=== PATIENT | female | born 1960 | race Two or more races ===

== ENCOUNTER 2016-10-20 14:07 | Emergency (ER) | payer BC, MEDICARE ==
[2016-10-20] MEDS ORDERED: ASPIRIN 81 MG TABLET, CHEWABLE PO ONE (14:19)
[2016-10-20] MEDS ORDERED: NORMAL SALINE 1000 ML 1,000 ML IV ONE (14:20)
[2016-10-20 15:17] LABS: ABSOLUTE BASOPHILS # (AUTO) 0.2 10^3/uL (0.0-0.2); ABSOLUTE EOSINOPHILS # (AUTO) 0.2 10^3/uL (0.0-0.6); ABSOLUTE LYMPHOCYTES (AUTO) 4.8 10^3/uL (0.5-4.7); ABSOLUTE MONOCYTES (AUTO) 1.5 10^3/uL (0.1-1.4); ABSOLUTE NEUT (AUTO) 12.7 10^3/uL (1.7-8.2); BASOPHILS % (AUTO) 0.9 % (0-2); EOSINOPHILS % (AUTO) 1.2 % (0-6); HEMATOCRIT 38.6 % (36.0-47.0); HEMOGLOBIN 12.4 g/dL (12.0-15.5); HGB HCT DIFFERENCE -1.4; LYMPHOCYTES % (AUTO) 24.8 % (13-45); MEAN CORPUSCULAR HEMOGLOBIN 24.7 pg (27.0-33.4); MEAN CORPUSCULAR HGB CONC 32.1 g/dL (32.0-36.0); MEAN CORPUSCULAR VOLUME 77 fl (80-97); MONOCYTES % (AUTO) 7.7 % (3-13); RED BLOOD COUNT 5.01 10^6/uL (3.72-5.28); RED CELL DISTRIBUTION WIDTH 18.4 % (11.5-14.0); SEGMENTED NEUTROPHILS % (AUTO) 65.4 % (42-78); WHITE BLOOD COUNT 19.5 10^3/uL (4.0-10.5)
[2016-10-20 15:49] LABS: PROTHROMBIN TIME 12.7 SEC (11.4-15.4)
[2016-10-20 15:51] LABS: ALANINE AMINOTRANSFERASE 33 U/L (9-52); ALBUMIN 4.2 g/dL (3.5-5.0); ALKALINE PHOSPHATASE 140 U/L (38-126); ANION GAP 16 (5-19); ASPARTATE AMINO TRANSFERASE 19 U/L (14-36); BILIRUBIN,TOTAL 0.4 mg/dL (0.2-1.3); BLOOD UREA NITROGEN 20 mg/dL (7-20); CALCIUM 9.9 mg/dL (8.4-10.2); CARBON DIOXIDE 23 mmol/L (22-30); CHLORIDE 100 mmol/L (98-107); CREATINE KINASE 68 U/L (30-135); CREATININE RESULT 0.97 mg/dL (0.52-1.25); GLUCOSE 194 mg/dL (75-110); MAGNESIUM 2.1 mg/dL (1.6-2.3); POTASSIUM 4.6 mmol/L (3.6-5.0); SODIUM 138.5 mmol/L (137-145); TOTAL PROTEIN 7.8 g/dL (6.3-8.2)
[2016-10-20 16:04] LABS: CREATINE KINASE MB < 0.22 ng/mL (<4.55); TROPONIN I < 0.012 ng/mL
[2016-10-20 16:26] LABS: APPEARANCE,URINE CLEAR; BILIRUBIN,URINE NEGATIVE (NEGATIVE); GLUCOSE, URINE >=500 mg/dL (NEGATIVE); KETONES,URINE NEGATIVE (NEGATIVE); LEUKOCYTE ESTERASE,URINE NEGATIVE (NEGATIVE); NITRITE,URINE NEGATIVE (NEGATIVE); PROTEIN,URINE NEGATIVE (NEGATIVE); URINE SPECIFIC GRAVITY 1.027; UROBILINOGEN,URINE NEGATIVE mg/dL (<2.0)
[2016-10-20 16:42] LABS: URINE BARBITURATES SCREEN UNCONFIRMED POSITIVE; URINE METHADONE SCREEN NEGATIVE; URINE OPIATES LOW NEGATIVE; URINE PHENCYCLIDINE SCREEN NEGATIVE
[2016-10-20] MEDS ORDERED: LIDOCAINE 5% (700 MG) TRANSDERMAL ADH..PATCH TP ONE (16:55)
--- NOTE | 2016-10-20 17:00 | ER Document Report ---
ED General - General Chief Complaint: Chest Pain Stated Complaint: CHEST PAIN TRAVEL OUTSIDE OF THE [place] IN LAST 30 DAYS: No - HPI Patient complains to provider of: chest wall pain left upper chest Notes: Patient coming in for evaluation of left upper chest pain. Patient has a history of coronary artery disease states recent stent approximately one year ago states this morning workup with left upper chest pain with pain in her arm. States pain arm surgeon fingertips goes up the shoulder. Patient denies any history of fever chills nausea vomiting diarrhea. 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 - Related Data Allergies/Adverse Reactions: metformin Allergy (Verified 09/03/15 21:34) calcium [From DHEA] Adverse Reaction (Verified 03/12/16 20:05) calcium carbonate [From DHEA] Adverse Reaction (Verified 03/12/16 20:05) ciprofloxacin [From Cipro] Adverse Reaction (Verified 03/12/16 20:06) dihydroergotamine mesylate [From Dhe] Adverse Reaction (Verified 09/03/15 21:34) Abnormal behavior prasterone (DHEA) [From DHEA] Adverse Reaction (Verified 03/12/16 20:05) Past Medical History - Social History Smoking Status: Unknown if Ever Smoked Family History: Reviewed & Not Pertinent - Past Medical History Cardiac Medical History: Reports: Hx Hypercholesterolemia, Hx Hypertension Pulmonary Medical History: Reports: Hx Sleep Apnea Endocrine Medical History: Reports: Hx Diabetes Mellitus Type 2 Musculoskeltal Medical History: Reports Hx Arthritis - rheum/osteo, Reports Hx Fibromyalgia Psychiatric Medical History: Reports: Hx Anxiety, Hx Depression, Hx Post Traumatic Stress Disorder Past Surgical History: Reports: Hx Appendectomy, Hx Section, Hx Cholecystectomy, Hx Hysterectomy, Hx Orthopedic Surgery - back. - Immunizations Hx Diphtheria, Pertussis, Tetanus Vaccination: Yes Review of Systems - Review of Systems Constitutional: No symptoms reported EENT: No symptoms reported Cardiovascular: Chest pain - Chest wall pain Respiratory: No symptoms reported Gastrointestinal: No symptoms reported Genitourinary: No symptoms reported Female Genitourinary: No symptoms reported Musculoskeletal: No symptoms reported Skin: No symptoms reported Hematologic/Lymphatic: No symptoms reported Neurological/Psychological: No symptoms reported -: Yes All other systems reviewed and negative Physical Exam - Vital signs Vitals: Pulse Ox 96 10/20/16 14:30 Interpretation: Normal - General General appearance: Appears well, Alert - HEENT Head: Normocephalic, Atraumatic Eyes: Normal Pupils: PERRL - Respiratory Respiratory status: No respiratory distress Chest status: Tender - Tenderness to palpation of the left upper chest reproduced the patient's symptoms and pain. Breath sounds: Normal Chest palpation: Normal - Cardiovascular Rhythm: Regular Heart sounds: Normal auscultation Murmur: No - Abdominal Inspection: Normal Distension: No distension Bowel sounds: Normal Tenderness: Nontender Organomegaly: No organomegaly - Back Back: Normal, Nontender - Extremities General upper extremity: Normal inspection, Nontender, Normal color, Normal ROM , Normal temperature General lower extremity: Normal inspection, Nontender, Normal color, Normal ROM , Normal temperature, Normal weight bearing. No: Reshma's sign - Neurological Neuro grossly intact: Yes Cognition: Normal Orientation: AAOx4 [place] Coma Scale Eye Opening: Spontaneous Ka[place] Coma Scale Verbal: Oriented [place] Coma Scale Motor: Obeys Commands [place] Coma Scale Total: 15 Speech: Normal Motor strength normal: LUE, RUE, LLE, RLE Sensory: Normal - Psychological Associated symptoms: Normal affect, Normal mood - Skin Skin Temperature: Warm Skin Moisture: Dry Skin Color: Normal Course - Re-evaluation Re-evalutation: 10/20/16 17:26 The patient has atypical chest pain as the patient's chest pain is not suggestive of pulmonary embolus, cardiac ischemia, aortic dissection, or other serious etiology. Given the extremely low risk of these diagnoses further testing and evaluation for these possibilities does not appear to be indicated at this time. The patient has been instructed to return if the symptoms worsen or change in any way. 10/20/16 17:27 - Vital Signs Vital signs: Temp Pulse Resp BP Pulse Ox 20 95 10/20/16 16:00 10/20/16 16:00 - Laboratory Result Diagrams: 10/20/16 15:00 10/20/16 15:00 Laboratory results interpreted by me: 10/20/16 10/20/16 10/20/16 15:00 15:00 15:08 WBC 19.5 H MCV 77 L MCH 24.7 L RDW 18.4 H Absolute Neutrophils 12.7 H Absolute Lymphocytes 4.8 H Absolute Monocytes 1.5 H Est GFR (Non-Af Amer) 59 L Glucose 194 H Alkaline Phosphatase 140 H Urine Glucose (UA) >=500 H Discharge - Discharge Clinical Impression: Dehydration, Chest wall pain Condition: Good Disposition: HOME, SELF-CARE Instructions: Anti-Inflammatory Medication ([facility]), Chest Pain of Unclear Cause ( [facility]), Chest Wall Pain ([facility]), Dehydration ([facility]) Additional Instructions: Please follow-up with your primary care physician. Your labwork today shows signs of dehydration please be sure that you drink plenty of water to stay hydrated. Follow-up with your primary care physician. You do have elevation in your white count today and more likely this is due to your arthritis. Please have your primary care physician continue to follow this. Referrals: MITUL GIL MD [Primary Care Provider] - Follow up as needed
[2016-10-20 17:58] VITALS: BP 102/67
--- NOTE | 2016-10-20 18:52 | EKG REPORT ---
SEVERITY:- ABNORMAL ECG - SINUS TACHYCARDIA RIGHT AXIS DEVIATION BORDERLINE INFERIOR Q WAVES NONSPECIFIC T ABNORMALITIES, ANTERIOR LEADS BORDERLINE PROLONGED QT INTERVAL : Confirmed by: Fox Carpenter MD 20-Oct-2016 18:51:11
== END 2016-10-20 17:58 | disposition home or self-care (01) ==
LOC: ER 14:07
DX: E86.0 Dehydration (principal); R07.89 Other chest pain; I25.10 Atherosclerotic heart disease of native coronary artery without angina pectoris
CPT/HCPCS: 36415; 71020; 80053; 80307; 81001; 82550; 82553; 83735; 84484; 85025; 85610; 93005; 93010; 99285

== ENCOUNTER → 2017-01-23 | Outpatient (CLI) | payer BC ==
--- NOTE | 2017-01-23 16:52 | WOMENS IMAGING REPORT ---
EXAM DESCRIPTION: BILAT SCREENING MAMMO W/CAD COMPLETED DATE/TIME: 01/23/2017 3:57 pm REASON FOR STUDY: Z12.31, ROUTINE SCREENING MAMMO Z12.31 ENCNTR SCREEN MAMMOGRAM FOR MALIGNANT NEOP LASM OF KEKE COMPARISON: None. TECHNIQUE: Standard craniocaudal and mediolateral oblique views of each breast recorded using VBOXa l acquisition. LIMITATIONS: None. FINDINGS: No masses, calcifications or architectural distortion. No areas of suspicion. Read with the assistance of CAD. .[facility] - R2 Cenova Version 1.3 .[facility] Imaging - R2 Cenova Version 1.3 .[facility] - R2 Cenova Version 2.4 .[facility] [place]2 Cenova Version 2.4 [facility] - R2 Software Licensing Specialist Version 9.2 IMPRESSION: NORMAL MAMMOGRAM. BIRADS 1. BREAST DENSITY: b. There are scattered areas of fibroglandular density. BIRAD: 1 NEGATIVE RECOMMENDATION: ROUTINE SCREENING COMMENT: The patient has been notified of the results by letter per MQSA requirements. Additional no tification policies are in place for contacting patient with suspicious or incomplete findings. Quality ID #[id number]: The [employer] [place] [employer] recommends an annual screening mammogram for women aged 40 years or over. This facility utilizes a reminder system to ensure that all patients receive reminder letters, and/or direct phone calls for appointments. This includes reminders for routine scr eening mammograms, diagnostic mammograms, or other Breast Imaging Interventions when appropriate. Th is patient will be placed in the appropriate reminder system. The [place] [employer] (ACR) has developed recommendations for screening MRI of the breast s in certain patient populations, to be used in conjunction with mammography. Breast MRI surveillanc e may be appropriate for women with more than 20% lifetime risk of developing breast cancer as deter mined by genetic testing, significant family history of the disease, or history of mantle radiation f or Hodgkins Disease. ACR Practice Guidelines 2008. TECHNICAL DOCUMENTATION: FINDING NUMBER: (1) ASSESSMENT: (1) JOB ID: [id number] [employer]- All Rights Reserved
== END ==
LOC: WI 15:03
PROVIDERS: ATTEND Internal Medicine
DX: Z12.31 Encounter for screening mammogram for malignant neoplasm of breast (principal)
CPT/HCPCS: 77067; G0202

== ENCOUNTER 2017-03-23 13:16 | Emergency (ER) | payer BC ==
[2017-03-23] MEDS ORDERED: LORAZEPAM 1 MG TABLET PO ONE (13:38)
--- NOTE | 2017-03-23 13:39 | ER Document Report ---
ED Cardiac - General Stated Complaint: CHEST PAIN Time Seen by Provider: 03/23/17 13:21 Mode of Arrival: Stretcher Information source: Patient TRAVEL OUTSIDE OF THE [place] IN LAST 30 DAYS: No - HPI Patient complains to provider of: Chest pain Was the onset of pain: Gradual Is the pain a: New problem Chest pain location: Substernal, Under breast Quality of pain: Sharp, Stabbing Severity now: Mild Severity at worst: Moderate Chest pain precipitating factors: At Rest Cardiac risk factors: Diabetes, Hypertension, Hx [place] Positive cardiac history: Yes Associated symptoms: Shortness of breath Exacerbated by: Emotional stress Relieved by: Nothing Similar symptoms previously: Yes Notes: Patient is a 56-year-old female presents to the emergency room complaining of sharp stabbing intermittent chest pain that has been going on for the past 3 days, she reports associated shortness of breath, states there is a tingling sensation in the fingers on her left hand at times as well, she does report an increase in emotional stress recently due to multiple deaths in the family, she does report that she had a stress test within the last 6 months and was told it "looked okay", patient denies cough, cold or congestion, no fever or chills - Related Data Allergies/Adverse Reactions: metformin Allergy (Verified 09/03/15 21:34) calcium [From DHEA] Adverse Reaction (Verified 03/12/16 20:05) calcium carbonate [From DHEA] Adverse Reaction (Verified 03/12/16 20:05) ciprofloxacin [From Cipro] Adverse Reaction (Verified 03/12/16 20:06) dihydroergotamine mesylate [From Dhe] Adverse Reaction (Verified 09/03/15 21:34) Abnormal behavior prasterone (DHEA) [From DHEA] Adverse Reaction (Verified 03/12/16 20:05) Past Medical History - General Information source: Patient - Social History Smoking Status: Never Smoker Family History: Reviewed & Not Pertinent - Past Medical History Cardiac Medical History: Reports: Hx Hypercholesterolemia, Hx Hypertension Pulmonary Medical History: Reports: Hx Sleep Apnea Endocrine Medical History: Reports: Hx Diabetes Mellitus Type 2 Musculoskeltal Medical History: Reports Hx Arthritis - rheum/osteo, Reports Hx Fibromyalgia Psychiatric Medical History: Reports: Hx Anxiety, Hx Depression, Hx Post Traumatic Stress Disorder Past Surgical History: Reports: Hx Appendectomy, Hx Section, Hx Cholecystectomy, Hx Hysterectomy, Hx Orthopedic Surgery - back. - Immunizations Hx Diphtheria, Pertussis, Tetanus Vaccination: Yes Review of Systems - Review of Systems Constitutional: No symptoms reported EENT: No symptoms reported Cardiovascular: See HPI Respiratory: No symptoms reported Gastrointestinal: No symptoms reported Genitourinary: No symptoms reported Female Genitourinary: No symptoms reported Musculoskeletal: No symptoms reported Skin: No symptoms reported Hematologic/Lymphatic: No symptoms reported Neurological/Psychological: See HPI -: Yes All other systems reviewed and negative Physical Exam - Vital signs Vitals: Pulse Ox 98 03/23/17 13:30 Interpretation: Tachycardic - General General appearance: Appears well, Alert - HEENT Head: Normocephalic, Atraumatic Eyes: Normal Pupils: PERRL - Respiratory Respiratory status: No respiratory distress Chest status: Tender - Palpate over anterior chest wall Breath sounds: Normal Chest palpation: Normal - Cardiovascular Rhythm: Regular Heart sounds: Normal auscultation Murmur: No - Abdominal Inspection: Normal Distension: No distension Bowel sounds: Normal Tenderness: Nontender Organomegaly: No organomegaly - Back Back: Normal, Nontender - Extremities General upper extremity: Normal inspection, Nontender, Normal color, Normal ROM , Normal temperature General lower extremity: Normal inspection, Nontender, Normal color, Normal ROM , Normal temperature, Normal weight bearing. No: Reshma's sign - Neurological Neuro grossly intact: Yes Cognition: Normal Orientation: AAOx4 Ka[place] Coma Scale Eye Opening: Spontaneous [place] Coma Scale Verbal: Oriented [place] Coma Scale Motor: Obeys Commands [place] Coma Scale Total: 15 Speech: Normal Motor strength normal: LUE, RUE, LLE, RLE Sensory: Normal - Psychological Associated symptoms: Normal affect, Normal mood - Skin Skin Temperature: Warm Skin Moisture: Dry Skin Color: Normal Course - Re-evaluation Re-evalutation: 03/23/17 15:50 Patient resting comfortably, reports feeling much better, daughter is at bedside , lab and imaging findings were discussed with patient and daughter with patient 's permission, which are unremarkable except for mild leukocytosis and mild liver enzyme elevation, patient does report that she is currently taking antibiotics for a skin infection to her left face, which is likely the cause of her leukocytosis, she was advised that her cardiac enzymes are negative, her chest pain is reproducible on palpation of the anterior chest wall, and is more consistent with musculoskeletal pain, she also admits to increased stressors recently due to deaths in the family, pain has been going on for 2 or 3 days and she has a completely negative cardiac enzymes today, therefore she will be discharged with instructions for follow-up and advised to return if any additional concerns, patient acknowledges understanding and agreement with this plan - Vital Signs Vital signs: Temp Pulse Resp BP Pulse Ox 98.3 F 115 H 29 H 147/119 H 95 03/23/17 13:37 03/23/17 13:37 03/23/17 15:00 03/23/17 13:37 03/23/17 15:00 - Laboratory Result Diagrams: 03/23/17 14:11 03/23/17 14:11 Laboratory results interpreted by me: 03/23/17 03/23/17 14:11 14:11 WBC 15.5 H MCH 26.4 L RDW 16.3 H Absolute Neutrophils 10.8 H Glucose 157 H AST 51 H ALT 59 H Alkaline Phosphatase 133 H Total Protein 8.6 H - Diagnostic Test Radiology reviewed: Image reviewed, Reports reviewed - EKG Interpretation by Me EKG shows normal: Sinus rhythm Rate: Tachycardia Discharge - Discharge Clinical Impression: Chest wall pain Condition: Stable Disposition: HOME, SELF-CARE Instructions: Chest Wall Pain ([facility]) Additional Instructions: Follow up with your primary care provider in one to 2 days. Return to the emergency room immediately if symptoms worsen or any additional concerns. Referrals: MITUL GIL MD [Primary Care Provider] - Follow up as needed
--- NOTE | 2017-03-23 14:07 | RADIOLOGY REPORT (SQ) ---
EXAM DESCRIPTION: CHEST SINGLE VIEW COMPLETED DATE/TIME: 03/23/2017 1:54 pm REASON FOR STUDY: cp COMPARISON: 10/20/2016 EXAM PARAMETERS: NUMBER OF VIEWS: One view. TECHNIQUE: Single frontal radiographic view of the chest acquired. RADIATION DOSE: NA LIMITATIONS: None. FINDINGS: LUNGS AND PLEURA: No opacities, masses or pneumothorax. No pleural effusion. MEDIASTINUM AND HILAR STRUCTURES: No masses. Contour normal. HEART AND VASCULAR STRUCTURES: Heart normal in size. Normal vasculature. BONES: No acute findings. HARDWARE: None in the chest. OTHER: No other significant finding. IMPRESSION: NO ACUTE RADIOGRAPHIC FINDING IN THE CHEST. TECHNICAL DOCUMENTATION: JOB ID: [id number]
[2017-03-23 14:25] LABS: ABSOLUTE BASOPHILS # (AUTO) 0.1 10^3/uL (0.0-0.2); ABSOLUTE EOSINOPHILS # (AUTO) 0.2 10^3/uL (0.0-0.6); ABSOLUTE LYMPHOCYTES (AUTO) 3.4 10^3/uL (0.5-4.7); ABSOLUTE NEUT (AUTO) 10.8 10^3/uL (1.7-8.2); BASOPHILS % (AUTO) 0.7 % (0-2); EOSINOPHILS % (AUTO) 1.4 % (0-6); HEMATOCRIT 39.8 % (36.0-47.0); HEMOGLOBIN 12.9 g/dL (12.0-15.5); HGB HCT DIFFERENCE -1.1; LYMPHOCYTES % (AUTO) 21.8 % (13-45); MEAN CORPUSCULAR HEMOGLOBIN 26.4 pg (27.0-33.4); MEAN CORPUSCULAR HGB CONC 32.3 g/dL (32.0-36.0); MEAN CORPUSCULAR VOLUME 82 fl (80-97); MONOCYTES % (AUTO) 6.6 % (3-13); RED BLOOD COUNT 4.87 10^6/uL (3.72-5.28); RED CELL DISTRIBUTION WIDTH 16.3 % (11.5-14.0); SEGMENTED NEUTROPHILS % (AUTO) 69.5 % (42-78); WHITE BLOOD COUNT 15.5 10^3/uL (4.0-10.5)
[2017-03-23 14:44] LABS: ALANINE AMINOTRANSFERASE 59 U/L (9-52); ALBUMIN 4.5 g/dL (3.5-5.0); ALKALINE PHOSPHATASE 133 U/L (38-126); ANION GAP 16 (5-19); ASPARTATE AMINO TRANSFERASE 51 U/L (14-36); BILIRUBIN,DIRECT 0.4 mg/dL (0.0-0.4); BILIRUBIN,TOTAL 0.5 mg/dL (0.2-1.3); BLOOD UREA NITROGEN 14 mg/dL (7-20); CALCIUM 9.5 mg/dL (8.4-10.2); CARBON DIOXIDE 25 mmol/L (22-30); CHLORIDE 101 mmol/L (98-107); CREATINE KINASE 41 U/L (30-135); CREATININE RESULT 0.95 mg/dL (0.52-1.25); GLUCOSE 157 mg/dL (75-110); POTASSIUM 4.3 mmol/L (3.6-5.0); SODIUM 142.2 mmol/L (137-145); TOTAL PROTEIN 8.6 g/dL (6.3-8.2)
[2017-03-23 14:55] LABS: CREATINE KINASE MB < 0.22 ng/mL (<4.55); TROPONIN I < 0.012 ng/mL
[2017-03-23 16:41] VITALS: BP 142/95
--- NOTE | 2017-03-23 18:59 | EKG REPORT ---
SEVERITY:- ABNORMAL ECG - SINUS TACHYCARDIA CONSIDER RVH W/ SECONDARY REPOL ABNORMALITY BORDERLINE INFERIOR Q WAVES : Confirmed by: Fox Carpenter MD 23-Mar-2017 18:58:48
== END 2017-03-23 17:47 | disposition home or self-care (01) ==
LOC: ER 13:16
DX: R07.89 Other chest pain (principal); R00.0 Tachycardia, unspecified; R74.8 Abnormal levels of other serum enzymes; R06.02 Shortness of breath; R20.2 Paresthesia of skin; L08.9 Local infection of the skin and subcutaneous tissue, unspecified; D72.829 Elevated white blood cell count, unspecified; I10 Essential (primary) hypertension; Z88.8 Allergy status to other drugs, medicaments and biological substances
CPT/HCPCS: 36415; 71010; 80053; 82550; 82553; 84484; 85025; 93005; 93010; 99285

== ENCOUNTER 2017-03-26 22:01 | Emergency (ER) | payer BC ==
[2017-03-26 22:18] VITALS: BP 108/72
--- NOTE | 2017-03-27 08:33 | EKG REPORT ---
SEVERITY:- ABNORMAL ECG - SINUS TACHYCARDIA PROBABLE RIGHT VENTRICULAR HYPERTROPHY CONSIDER INFERIOR INFARCT : Confirmed by: Estefany Cade 27-Mar-2017 08:32:11
== END 2017-03-26 23:45 | disposition left against medical advice (07) ==
LOC: ER 22:01
DX: Z53.9 Procedure and treatment not carried out, unspecified reason (principal); R07.9 Chest pain, unspecified
CPT/HCPCS: 93005; 93010

== ENCOUNTER 2017-03-27 10:17 | Observation (INO) | payer MEDICARE, BC ==
--- NOTE | 2017-03-27 12:08 | EKG REPORT ---
SEVERITY:- ABNORMAL ECG - SINUS TACHYCARDIA BORDERLINE RIGHT AXIS DEVIATION BORDERLINE INFERIOR Q WAVES BORDERLINE T ABNORMALITIES, DIFFUSE LEADS : Confirmed by: Estefany Cade 27-Mar-2017 12:08:10
[2017-03-27 12:12] LABS: ABSOLUTE BASOPHILS # (AUTO) 0.3 10^3/uL (0.0-0.2); ABSOLUTE EOSINOPHILS # (AUTO) 0.3 10^3/uL (0.0-0.6); ABSOLUTE LYMPHOCYTES (AUTO) 5.3 10^3/uL (0.5-4.7); ABSOLUTE MONOCYTES (AUTO) 1.3 10^3/uL (0.1-1.4); ABSOLUTE NEUT (AUTO) 11.4 10^3/uL (1.7-8.2); BASOPHILS % (AUTO) 1.4 % (0-2); EOSINOPHILS % (AUTO) 1.8 % (0-6); HEMATOCRIT 40.4 % (36.0-47.0); HEMOGLOBIN 12.8 g/dL (12.0-15.5); LYMPHOCYTES % (AUTO) 28.4 % (13-45); MEAN CORPUSCULAR HGB CONC 31.7 g/dL (32.0-36.0); MEAN CORPUSCULAR VOLUME 82 fl (80-97); MONOCYTES % (AUTO) 6.9 % (3-13); RED BLOOD COUNT 4.92 10^6/uL (3.72-5.28); RED CELL DISTRIBUTION WIDTH 16.6 % (11.5-14.0); SEGMENTED NEUTROPHILS % (AUTO) 61.5 % (42-78); WHITE BLOOD COUNT 18.5 10^3/uL (4.0-10.5)
[2017-03-27 12:23] LABS: ALANINE AMINOTRANSFERASE 42 U/L (9-52); ALBUMIN 4.4 g/dL (3.5-5.0); ALKALINE PHOSPHATASE 139 U/L (38-126); ANION GAP 17 (5-19); ASPARTATE AMINO TRANSFERASE 18 U/L (14-36); BILIRUBIN,DIRECT 0.4 mg/dL (0.0-0.4); BILIRUBIN,TOTAL 0.5 mg/dL (0.2-1.3); BLOOD UREA NITROGEN 19 mg/dL (7-20); CALCIUM 10.2 mg/dL (8.4-10.2); CARBON DIOXIDE 23 mmol/L (22-30); CHLORIDE 100 mmol/L (98-107); CREATINE KINASE 31 U/L (30-135); CREATININE RESULT 1.02 mg/dL (0.52-1.25); GLUCOSE 104 mg/dL (75-110); POTASSIUM 4.4 mmol/L (3.6-5.0); SODIUM 139.8 mmol/L (137-145); TOTAL PROTEIN 8.4 g/dL (6.3-8.2)
[2017-03-27 12:36] LABS: CREATINE KINASE MB < 0.22 ng/mL (<4.55); TROPONIN I < 0.012 ng/mL
[2017-03-27] MEDS ORDERED: ENOXAPARIN SODIUM INJ 40 MG/0.4 ML DISP.SYRIN SUBCUT ONE (13:00)
--- NOTE | 2017-03-27 13:14 | RADIOLOGY REPORT (SQ) ---
EXAM DESCRIPTION: CHEST SINGLE VIEW COMPLETED DATE/TIME: 03/27/2017 12:36 pm REASON FOR STUDY: chest pain COMPARISON: CT angio chest 08/08/2016 Chest films 10/20/2016, 03/23/2017 EXAM PARAMETERS: NUMBER OF VIEWS: One view. TECHNIQUE: Single frontal radiographic view of the chest acquired. RADIATION DOSE: NA LIMITATIONS: None. FINDINGS: LUNGS AND PLEURA: No opacities, masses or pneumothorax. No pleural effusion. MEDIASTINUM AND HILAR STRUCTURES: No masses. Contour normal. HEART AND VASCULAR STRUCTURES: Heart normal in size. Normal vasculature. BONES: No acute findings. HARDWARE: None in the chest. OTHER: No other significant finding. IMPRESSION: NO ACUTE RADIOGRAPHIC FINDING IN THE CHEST. TECHNICAL DOCUMENTATION: JOB ID: [id number]
[2017-03-27] MEDS: CYCLOBENZAPRINE HCL 10 MG TABLET PO PRN (15:50)
[2017-03-27] MEDS ORDERED: GABAPENTIN 900 MG PO SCH (18:00)
[2017-03-27] MEDS: LORAZEPAM 1 MG TABLET PO SCH ×2 (18:01→23:14)
[2017-03-27] MEDS: TRAMADOL HCL 50 MG TABLET PO PRN (19:51)
[2017-03-27 20:43] LABS: CREATINE KINASE MB < 0.22 ng/mL (<4.55); TROPONIN I < 0.012 ng/mL
[2017-03-27] MEDS: ONDANSETRON HCL INJ/PF 4 MG/2 ML SDV IV PRN (20:49)
--- NOTE | 2017-03-27 21:40 | PDOC H&P ---
History of Present Illness Admission Date/PCP: 03/27/17 10:17 History of Present Illness: RADHA POSADAS is a 56 year old female, She came to the office today for evaluation of chest pain and migraine type headache. She stated that she went to the emergency room last night because of chest pain she said she stayed for about 2 hours but she was not seen so she left the ER and she came to the office today,in the office she complained of a headache and chest pain, the chest pain was reproducible on palpation of the chest making cardiac chest pain unlikely she also recently had a cardiac stress test done but I am not sure what date this was done, it was negative for reversible ischemia. She was brought in for observation and management of her symptoms she has risk factors for ischemic heart disease including diabetes mellitus. The hemogram showed unexplained leukocytosis there is no focal source of infection, the UA is pending, the chest x-ray was negative for pneumonia there is no cellulitis. Past Medical History Cardiac Medical History: Reports: Hyperlipidema, Hypertension Pulmonary Medical History: Reports: Sleep Apnea Endocrine Medical History: Reports: Diabetes Mellitus Type 2 Musculoskeltal Medical History: Reports: Arthritis - rheum/osteo, Fibromyalgia Psychiatric Medical History: Reports: Depression, General Anxiety Disorder, Post Traumatic Stress Disorder Past Surgical History Past Surgical History: Reports: Appendectomy, Section, Cholecystectomy , Hysterectomy, Orthopedic Surgery - back. Social History Smoking Status: Never Smoker Frequency of Alcohol Use: None Hx Recreational Drug Use: No Drugs: None Hx Prescription Drug Abuse: No Family History Family History: Reviewed & Not Pertinent Parental Family History Reviewed: Yes Children Family History Reviewed: Yes Sibling(s) Family History Reviewed.: Yes Medication/Allergy Home Medications: Aspirin [Aspirin 81 mg Chewable Tablet] 81 mg PO DAILY 03/27/17 Clopidogrel Bisulfate [Clopidogrel] 75 mg PO DAILY 03/27/17 Cyclobenzaprine HCl [Flexeril 10 mg Tablet] 10 mg PO Q8HP PRN 03/27/17 Diphenhydramine HCl [Benadryl 50 mg Capsule] 50 mg PO Q12 03/27/17 Empagliflozin/Linagliptin [Glyxambi 25 mg-5 mg Tablet] 1 tab PO DAILY 03/27/17 Ergocalciferol (Vitamin D2) [Drisdol 50,000 Unit (1.25MG) Capsule] 50,000 unit PO MO@1000 03/27/17 Exenatide Microspheres [Bydureon Pen] 2 mg SQ MO@1000 03/27/17 Gabapentin [Gralise] 900 mg PO QPM 03/27/17 Hydroxychloroquine Sulfate [Plaquenil 200 mg Tablet] 200 mg PO Q12 03/27/17 Insulin Glargine,Hum.rec.anlog [Basaglar Kwikpen U-100] 40 unit SQ DAILY Lisinopril/Hydrochlorothiazide [Lisinopril-Hctz 20-12.5 mg Tab] 1 tab PO DAILY 03/27/17 Lorazepam [Ativan 1 mg Tablet] 1 mg PO Q6 03/27/17 Ondansetron HCl [Zofran 8 mg Tablet] 8 mg PO DAILY 03/27/17 Simvastatin [Zocor 20 mg Tablet] 20 mg PO QHS 03/27/17 Allergies/Adverse Reactions: metformin Allergy (Verified 09/03/15 21:34) calcium [From DHEA] Adverse Reaction (Verified 03/12/16 20:05) calcium carbonate [From DHEA] Adverse Reaction (Verified 03/12/16 20:05) ciprofloxacin [From Cipro] Adverse Reaction (Verified 03/12/16 20:06) dihydroergotamine mesylate [From Dhe] Adverse Reaction (Verified 09/03/15 21:34) Abnormal behavior prasterone (DHEA) [From DHEA] Adverse Reaction (Verified 03/12/16 20:05) Review of Systems Constitutional: PRESENT: headache(s) Eyes: ABSENT: visual disturbances Ears: ABSENT: hearing changes Cardiovascular: PRESENT: chest pain Respiratory: ABSENT: cough, hemoptysis Gastrointestinal: ABSENT: abdominal pain, constipation, diarrhea, hematemesis, hematochezia, nausea, vomiting Genitourinary: ABSENT: dysuria, hematuria Musculoskeletal: ABSENT: joint swelling Integumentary: ABSENT: rash, wounds Neurological: ABSENT: abnormal gait, abnormal speech, confusion, dizziness, focal weakness, syncope Psychiatric: ABSENT: anxiety, depression, homidical ideation, suicidal ideation Endocrine: ABSENT: cold intolerance, heat intolerance, menstrual abnormalities, polydipsia, polyuria Hematologic/Lymphatic: ABSENT: easy bleeding, easy bruising, lymphadenopathy Physical Exam Vital Signs: Temp Pulse Resp BP Pulse Ox 97.5 F 94 20 109/68 95 03/27/17 20:37 03/27/17 20:37 03/27/17 20:37 03/27/17 20:37 03/27/17 20:37 Intake & Output 03/26/17 03/27/17 03/28/17 06:59 06:59 06:59 Intake Total 247 Balance 247 Weight 113 kg General appearance: PRESENT: obese Head exam: PRESENT: atraumatic, normocephalic Eye exam: PRESENT: conjunctiva pink, EOMI, PERRLA Ear exam: PRESENT: normal external ear exam Neck exam: PRESENT: full ROM Respiratory exam: PRESENT: chest wall tenderness, clear to auscultation hilda, other - The chest pain is reproducible on palpation Cardiovascular exam: PRESENT: RRR, +S1, +S2 Pulses: PRESENT: normal dorsalis pedis pul, +2 pedal pulses bilateral Vascular exam: PRESENT: normal capillary refill GI/Abdominal exam: PRESENT: normal bowel sounds, soft Rectal exam: PRESENT: deferred Neurological exam: PRESENT: alert, awake, oriented to person, oriented to place , oriented to time, oriented to situation, CN II-XII grossly intact Skin exam: PRESENT: dry, intact, warm Results Laboratory Results: 03/27/17 11:55 03/27/17 11:55 03/27/17 03/27/17 11:55 11:55 WBC 18.5 H RBC 4.92 Hgb 12.8 Hct 40.4 MCV 82 MCH 26.0 L MCHC 31.7 L RDW 16.6 H Plt Count 403 Seg Neutrophils % 61.5 Lymphocytes % 28.4 Monocytes % 6.9 Eosinophils % 1.8 Basophils % 1.4 Absolute Neutrophils 11.4 H Absolute Lymphocytes 5.3 H Absolute Monocytes 1.3 Absolute Eosinophils 0.3 Absolute Basophils 0.3 H Sodium 139.8 Potassium 4.4 Chloride 100 Carbon Dioxide 23 Anion Gap 17 BUN 19 Creatinine 1.02 Est GFR ( Amer) > 60 Est GFR (Non-Af Amer) 56 L Glucose 104 Calcium 10.2 Total Bilirubin 0.5 AST 18 ALT 42 Alkaline Phosphatase 139 H Total Protein 8.4 H Albumin 4.4 03/27/17 03/27/17 03/27/17 11:55 11:55 19:53 Creatine Kinase 31 31 CK-MB (CK-2) < 0.22 Troponin I < 0.012 03/27/17 19:55 Creatine Kinase CK-MB (CK-2) < 0.22 Troponin I < 0.012 Impressions: Chest X-Ray 03/27/17 00:00 IMPRESSION: NO ACUTE RADIOGRAPHIC FINDING IN THE CHEST. 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 Cardiac enzymes will be ordered also a stress test will be ordered and flow cytometry will be ordered
[2017-03-27] MEDS: HYDROXYCHLOROQUINE SULFATE 200 MG TABLET PO SCH (21:41)
[2017-03-27] MEDS: DIPHENHYDRAMINE HCL 50 MG CAPSULE PO SCH (21:41)
[2017-03-27] MEDS: SIMVASTATIN 10 MG TABLET PO SCH (21:41)
[2017-03-27] MEDS: HYDROMORPHONE HCL INJ/PF 2 MG/ML AMPULE IV PRN (23:14)
[2017-03-27 23:44] LABS: APPEARANCE,URINE SLIGHTLY-CLOUDY; BILIRUBIN,URINE NEGATIVE (NEGATIVE); GLUCOSE, URINE >=500 mg/dL (NEGATIVE); KETONES,URINE NEGATIVE (NEGATIVE); LEUKOCYTE ESTERASE,URINE NEGATIVE (NEGATIVE); NITRITE,URINE NEGATIVE (NEGATIVE); PROTEIN,URINE NEGATIVE (NEGATIVE); URINE SPECIFIC GRAVITY 1.015; UROBILINOGEN,URINE NEGATIVE mg/dL (<2.0)
[2017-03-28] MEDS: HYDROMORPHONE HCL INJ/PF 2 MG/ML AMPULE IV PRN ×4 (04:09→23:09)
[2017-03-28] MEDS: ONDANSETRON HCL INJ/PF 4 MG/2 ML SDV IV PRN ×2 (04:34→12:31)
[2017-03-28 04:52] LABS: CREATINE KINASE MB < 0.22 ng/mL (<4.55); TROPONIN I < 0.012 ng/mL
[2017-03-28] MEDS: LORAZEPAM 1 MG TABLET PO SCH ×4 (05:19→23:09)
[2017-03-28] MEDS: ENOXAPARIN SODIUM INJ 40 MG/0.4 ML DISP.SYRIN SUBCUT SCH (08:45)
[2017-03-28] MEDS ORDERED: LINAGLIPTIN PO SCH (10:00)
[2017-03-28] MEDS ORDERED: (PENDING PHARMACY ID) (Lisinopril/Hydrochlorothiazide [Lisinopril-Hctz 20-12.5 Mg Tab] 1 T PO SCH (10:00)
[2017-03-28] MEDS ORDERED: EMPAGLIFLOZIN PO SCH (10:00)
[2017-03-28] MEDS: INSULIN GLARGINE,HUM.REC.ANLOG 300 UNIT/3 ML INSULN.PEN SUBCUT SCH (10:04)
[2017-03-28] MEDS: DIPHENHYDRAMINE HCL 50 MG CAPSULE PO SCH ×2 (10:08→21:55)
[2017-03-28] MEDS: CLOPIDOGREL BISULFATE 75 MG TABLET PO SCH (10:08)
[2017-03-28] MEDS: ASPIRIN 81 MG TABLET, CHEWABLE PO SCH (10:08)
[2017-03-28] MEDS: ONDANSETRON HCL 8 MG TABLET PO SCH (10:09)
[2017-03-28] MEDS: HYDROXYCHLOROQUINE SULFATE 200 MG TABLET PO SCH ×2 (10:10→21:55)
[2017-03-28] MEDS: HYDROCHLOROTHIAZIDE 12.5 MG CAPSULE PO SCH (10:14)
[2017-03-28] MEDS: LISINOPRIL 10 MG TABLET PO SCH (10:14)
[2017-03-28] MEDS: CYCLOBENZAPRINE HCL 10 MG TABLET PO PRN ×2 (10:35→18:52)
--- NOTE | 2017-03-28 14:28 | Physician Advisory Note ---
Physician Advisor ProgressNote .: Pursuant to the plan for [facility], I have reviewed the medical record for this patient. Physician Advisor Statement: Attending, 1. Please be sure to document most likely cause of CP. 2. Most likely cause of leukocytosis, if found/suspected. 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 CK
[2017-03-28] MEDS: NORMAL SALINE 1000 ML 1,000 ML IV PRN (15:06)
[2017-03-28] MEDS ORDERED: SERTRALINE HCL 50 MG TABLET PO ONE (15:30)
[2017-03-28] MEDS ORDERED: GABAPENTIN 900 MG PO SCH (18:00)
[2017-03-28] MEDS: GABAPENTIN 300 MG PO SCH (18:38)
[2017-03-28] MEDS: SIMVASTATIN 10 MG TABLET PO SCH (21:55)
[2017-03-28] MEDS: SERTRALINE HCL 50 MG TABLET PO SCH (21:55)
[2017-03-29] MEDS: NORMAL SALINE 1000 ML 1,000 ML IV PRN ×2 (04:31→17:19)
[2017-03-29] MEDS: LORAZEPAM 1 MG TABLET PO SCH ×3 (05:36→17:11)
[2017-03-29] MEDS: HYDROMORPHONE HCL INJ/PF 2 MG/ML AMPULE IV PRN ×3 (05:39→17:16)
[2017-03-29] MEDS: ENOXAPARIN SODIUM INJ 40 MG/0.4 ML DISP.SYRIN SUBCUT SCH (08:20)
[2017-03-29] MEDS ORDERED: LORAZEPAM 1 MG TABLET PO ONE (09:00)
[2017-03-29] MEDS: DIPHENHYDRAMINE HCL 50 MG CAPSULE PO SCH ×2 (09:32→20:52)
[2017-03-29] MEDS: CLOPIDOGREL BISULFATE 75 MG TABLET PO SCH (09:32)
[2017-03-29] MEDS: ASPIRIN 81 MG TABLET, CHEWABLE PO SCH (09:32)
[2017-03-29] MEDS: SERTRALINE HCL 50 MG TABLET PO SCH ×2 (09:33→20:50)
[2017-03-29] MEDS: HYDROXYCHLOROQUINE SULFATE 200 MG TABLET PO SCH ×2 (09:33→20:52)
[2017-03-29] MEDS: ONDANSETRON HCL 8 MG TABLET PO SCH (09:33)
[2017-03-29] MEDS: INSULIN GLARGINE,HUM.REC.ANLOG 300 UNIT/3 ML INSULN.PEN SUBCUT SCH (09:34)
[2017-03-29] MEDS: LISINOPRIL 10 MG TABLET PO SCH (09:39)
[2017-03-29] MEDS: HYDROCHLOROTHIAZIDE 12.5 MG CAPSULE PO SCH (09:39)
[2017-03-29] MEDS ORDERED: REGADENOSON INJ 0.4 MG/5 ML DISP.SYRIN IV ONE (13:25)
[2017-03-29] MEDS: GABAPENTIN 300 MG PO SCH (17:12)
--- NOTE | 2017-03-29 17:54 | PDOC DISCHARGE SUMMARY ---
General - Admit/Disc Date/PCP Admission Date/Primary Care Provider: 03/27/17 10:17 Discharge Date: 03/29/17 - Discharge Diagnosis (1) Chest pain Is this a current diagnosis for this admission?: Yes (2) Headache Is this a current diagnosis for this admission?: Yes (3) Leukocytosis Is this a current diagnosis for this admission?: Yes - Additional Information Discharge Diet: Diabetic Discharge Activity: Activity As Tolerated Home Medications: Aspirin [Aspirin 81 mg Chewable Tablet] 81 mg PO DAILY 03/27/17 Clopidogrel Bisulfate [Clopidogrel] 75 mg PO DAILY 03/27/17 Cyclobenzaprine HCl [Flexeril 10 mg Tablet] 10 mg PO Q8HP PRN 03/27/17 Diphenhydramine HCl [Benadryl 50 mg Capsule] 50 mg PO Q12 03/27/17 Empagliflozin/Linagliptin [Glyxambi 25 mg-5 mg Tablet] 1 tab PO DAILY 03/27/17 Ergocalciferol (Vitamin D2) [Drisdol 50,000 unit (1.25MG) Capsule] 50,000 unit PO MO@1000 03/27/17 Exenatide Microspheres [Bydureon Pen] 2 mg SQ MO@1000 03/27/17 Gabapentin [Gralise] 900 mg PO QPM 03/27/17 Hydroxychloroquine Sulfate [Plaquenil 200 mg Tablet] 200 mg PO Q12 03/27/17 Insulin Glargine,Hum.rec.anlog [Basaglar Kwikpen U-100] 40 unit SQ DAILY Lisinopril/Hydrochlorothiazide [Lisinopril-Hctz 20-12.5 mg Tab] 1 tab PO DAILY 03/27/17 Lorazepam [Ativan 1 mg Tablet] 1 mg PO Q6 03/27/17 Ondansetron HCl [Zofran 8 mg Tablet] 8 mg PO DAILY 03/27/17 Simvastatin [Zocor 20 mg Tablet] 20 mg PO QHS 03/27/17 History of Present Illness History of Present Illness: RADHA POSADAS is a 56 year old female, She came to the office today for evaluation of chest pain and migraine type headache. She stated that she went to the emergency room last night because of chest pain she said she stayed for about 2 hours but she was not seen so she left the ER and she came to the office today,in the office she complained of a headache and chest pain, the chest pain was reproducible on palpation of the chest making cardiac chest pain unlikely she also recently had a cardiac stress test done but I am not sure what date this was done, it was negative for reversible ischemia. She was brought in for observation and management of her symptoms she has risk factors for ischemic heart disease including diabetes mellitus. The hemogram showed unexplained leukocytosis there is no focal source of infection, the UA is pending, the chest x-ray was negative for pneumonia there is no cellulitis. Hospital Course Hospital Course: Patient was admitted for evaluation of chest pain, headache, she had a Cardiolite Lexiscan stress test done, it was negative for reversible ischemia. The headache was treated with IV Dilaudid with good response. She will be discharge home today. She had leukocytosis not due to infection, flow cytometry ordered ,result pending. Physical Exam Vital Signs: Temp Pulse Resp BP Pulse Ox 98.5 F 103 H 18 121/72 96 03/29/17 15:28 03/29/17 15:28 03/29/17 15:28 03/29/17 15:28 03/29/17 15:28 Intake & Output 03/28/17 03/29/17 03/30/17 06:59 06:59 06:59 Intake Total 782 2021 Balance 782 2021 Weight 113 kg General appearance: PRESENT: no acute distress, well-developed, well-nourished Head exam: PRESENT: atraumatic, normocephalic Eye exam: PRESENT: conjunctiva pink, EOMI, PERRLA Ear exam: PRESENT: normal external ear exam Mouth exam: PRESENT: moist, tongue midline Neck exam: PRESENT: full ROM Cardiovascular exam: PRESENT: RRR, +S1, +S2 Pulses: PRESENT: normal dorsalis pedis pul, +2 pedal pulses bilateral Vascular exam: PRESENT: normal capillary refill GI/Abdominal exam: PRESENT: normal bowel sounds, soft Rectal exam: PRESENT: deferred Neurological exam: PRESENT: alert, awake, oriented to person, oriented to place , oriented to time, oriented to situation, CN II-XII grossly intact Psychiatric exam: PRESENT: appropriate affect, normal mood Skin exam: PRESENT: dry, intact, warm Results Laboratory Results: 03/27/17 11:55 03/27/17 11:55 03/27/17 03/27/17 03/27/17 11:55 11:55 19:53 Creatine Kinase 31 31 CK-MB (CK-2) < 0.22 Troponin I < 0.012 03/27/17 03/28/17 03/28/17 19:55 04:15 04:15 Creatine Kinase 32 CK-MB (CK-2) < 0.22 < 0.22 Troponin I < 0.012 < 0.012 Impressions: Chest X-Ray 03/27/17 00:00 IMPRESSION: NO ACUTE RADIOGRAPHIC FINDING IN THE CHEST.
--- NOTE | 2017-03-29 19:01 | DRAGON STRESS TEST REPORT ---
Intravenous Lexiscan Cardiolite stress test using single photon emmision computerized tomography. Date of procedure: 03/29/2017. Ordering Provider: Dr. Friend. Patient's status: In patient. Indication: Chest pain. Coronary risk factors: Age, diabetes mellitus, and hypertension. Resting EKG: Sinus Rhythm. There are no acute changes Stress EKG: No changes of ischemia. Reason for termination: Protocol. The patient had no chest pain or discomfort, and there were no arrhythmias seen. But the patient did vomit, and complained of dizziness with the room spinning. There were no hemodynamic changes. These symptoms subsided when the patient drank Pepsi. Conclusions: Normal EKG and hemodynamic response to IV Lexiscan. Nuclear data: At rest the patient was given 14.07 millicuries of technetium 99m sestamibi injected intravenously. As per protocol rest non gated SPECT images were obtained. Subsequently the patient was given intravenous Lexiscan at a dose of 0.4 mg in 5 mL intravenously, followed by flush with normal saline. Subsequently the stress dose of 44.1 millicuries of technetium 99m sestamibi was injected intravenously. As per protocol stress gated images were obtained. Nuclear interpretation: Review of images showed that there is severe breast attenuation artifact of the anterior wall, and liver contamination artifact of the inferior wall. This is a poor quality study. In spite of this probably all segments of the myocardium had normal perfusion at rest, and normal perfusion post stress with IV Lexiscan. All segments of the myocardium had normal motion, contraction, and thickening by gated study. T. I D. ratio was normal at 1.05. Computer read rest, and stress left ventricular ejection fraction were 65 %, and 73 %, respectively. Conclusion: 1. There is probably no scintigraphic evidence of Lexiscan induced myocardial ischemia. 2. There is no scintigraphic evidence of myocardial infarction/scar. Correlate clinically. Recommend cardiology consultation follow-up. This has been discussed with Dr. Friend the attending physician. Recommendations: Aggressive risk factor modification, and treating the underlying co- morbidities. [facility]
[2017-03-29] MEDS: SIMVASTATIN 10 MG TABLET PO SCH (20:48)
[2017-03-29] MEDS: TRAMADOL HCL 50 MG TABLET PO PRN (20:51)
[2017-03-29 20:54] VITALS: BP 112/63
[2017-04-02] MEDS ORDERED: (PENDING PHARMACY ID) (Exenatide Microspheres [Bydureon Pen] 2 MG) SQ SCH (10:00)
[2017-04-02] MEDS ORDERED: ERGOCALCIFEROL (VITAMIN D2) 50000 UNIT (1.25 MG) CAPSULE PO SCH (10:00)
== END 2017-03-29 22:00 | disposition home or self-care (01) ==
LOC: 3W 10:17
PROVIDERS: ADMIT Internal Medicine; ATTEND Internal Medicine
DX: R07.9 Chest pain, unspecified (principal); G44.51 Hemicrania continua; D72.829 Elevated white blood cell count, unspecified; E11.9 Type 2 diabetes mellitus without complications; M06.9 Rheumatoid arthritis, unspecified; M19.90 Unspecified osteoarthritis, unspecified site; E66.9 Obesity, unspecified; E78.5 Hyperlipidemia, unspecified; I10 Essential (primary) hypertension; Z79.899 Other long term (current) drug therapy; Z79.82 Long term (current) use of aspirin; Z79.02 Long term (current) use of antithrombotics/antiplatelets; Z79.4 Long term (current) use of insulin; Z80.1 Family history of malignant neoplasm of trachea, bronchus and lung; Z90.49 Acquired absence of other specified parts of digestive tract; Z68.35 Body mass index [BMI] 35.0-35.9, adult
CPT/HCPCS: 88184; 88185 ×22; 36415 ×2; 87040; 87086; 82553 ×2; 82962 ×3; 82550 ×2; 85025; 80076; 80048; 81001; 84484 ×2; 83036; 85379; 93017; 71010; 78452; 93005; 93010; G0378 ×3; A9500; J2785; A9270 ×25; J1650 ×2; J1170 ×3; J2405 ×2; J7030 ×2; Q9969; J1815; J3490; S0119

== ENCOUNTER 2017-04-14 13:41 | Emergency (ER) | payer BC, MEDICARE ==
[2017-04-14] MEDS ORDERED: ASPIRIN 81 MG TABLET, CHEWABLE PO ONE (14:09)
[2017-04-14] MEDS ORDERED: ONDANSETRON HCL INJ/PF 4 MG/2 ML SDV IV ONE (14:09)
--- NOTE | 2017-04-14 14:10 | ER Document Report ---
ED Medical Screen (RME) - General Chief Complaint: Chest Pain Stated Complaint: CHEST PAIN Time Seen by Provider: 04/14/17 14:08 Mode of Arrival: Wheelchair Information source: Patient TRAVEL OUTSIDE OF THE [place] IN LAST 30 DAYS: No - HPI Patient complains to provider of: Chest pain, abdominal pain, migraine headache , nausea and vomiting, toothac Notes: 04/14/17 14:10 Patient is a 56-year-old female with multiple medical problems, presenting to the emergency room today complaining of multiple issues including chest pain, abdominal pain, nausea and vomiting, migraine headache, toothache, symptoms have been going on for the past few days but the chest pain started this morning - Related Data Allergies/Adverse Reactions: metformin Allergy (Verified 04/14/17 14:07) calcium [From DHEA] Adverse Reaction (Verified 04/14/17 14:07) calcium carbonate [From DHEA] Adverse Reaction (Verified 04/14/17 14:07) ciprofloxacin [From Cipro] Adverse Reaction (Verified 04/14/17 14:07) dihydroergotamine mesylate [From Dhe] Adverse Reaction (Verified 04/14/17 14:07) Abnormal behavior prasterone (DHEA) [From DHEA] Adverse Reaction (Verified 04/14/17 14:07) Past Medical History - Past Medical History Cardiac Medical History: Reports: Hx Hypercholesterolemia, Hx Hypertension Pulmonary Medical History: Reports: Hx Sleep Apnea Endocrine Medical History: Reports: Hx Diabetes Mellitus Type 2 Renal/ Medical History: Denies: Hx Peritoneal Dialysis Musculoskeltal Medical History: Reports Hx Arthritis - rheum/osteo, Reports Hx Fibromyalgia Psychiatric Medical History: Reports: Hx Anxiety, Hx Depression, Hx Post Traumatic Stress Disorder Past Surgical History: Reports: Hx Appendectomy, Hx Section, Hx Cholecystectomy, Hx Hysterectomy, Hx Orthopedic Surgery - back. - Immunizations Hx Diphtheria, Pertussis, Tetanus Vaccination: Yes Physical Exam - Vital signs Vitals: Temp Pulse Resp BP Pulse Ox 97.8 F 115 H 20 139/92 H 98 04/14/17 14:04/14/17 14:09 04/14/17 14:09 04/14/17 14:09 04/14/17 14:09 Course - Vital Signs Vital signs: Temp Pulse Resp BP Pulse Ox 97.8 F 115 H 20 139/92 H 98 04/14/17 14:09 04/14/17 14:09 04/14/17 14:09 04/14/17 14:09 04/14/17 14:09
[2017-04-14] MEDS ORDERED: HALOPERIDOL LACTATE INJ 5 MG/1 ML VIAL IV ONE (14:22)
[2017-04-14] MEDS ORDERED: DIPHENHYDRAMINE HCL 50 MG/ML VIAL IV ONE (14:22)
[2017-04-14] MEDS ORDERED: BUPIVACAINE HCL 0.5 % INJ/PF 30 ML SDV INJ ONE (14:22)
--- NOTE | 2017-04-14 14:26 | ER Document Report ---
ED General - General Chief Complaint: Chest Pain Stated Complaint: CHEST PAIN Time Seen by Provider: 04/14/17 14:08 Mode of Arrival: Wheelchair Information source: Patient Notes: 56-year-old female history of fibromyalgia PTSD anxiety depression previous [facility] last year presents with complaints of migraine headache dental pain and chest pain. Patient states she was admitted for the same symptoms 2 weeks ago had a negative stress test at that time. Patient states that her chest pain is related to her dry heaving and that her headache is related to her dental pain which is causing her dry heaving. Patient notes she spoke with her oral surgeon who is supposed to take her tooth out on Sunday who called in Tylenol with codeine for her back she did not feel this was enough so she came in to be evaluated TRAVEL OUTSIDE OF THE [place] IN LAST 30 DAYS: No - HPI Onset: Just prior to arrival Onset/Duration: Sudden Quality of pain: Achy Severity: Moderate Pain Level: 3 Associated symptoms: Chest pain, Headache, Nausea, Vomiting, Other - dental pain Exacerbated by: Food Relieved by: Denies Similar symptoms previously: Yes Recently seen / treated by doctor: Yes - Related Data Allergies/Adverse Reactions: metformin Allergy (Verified 04/14/17 14:07) calcium [From DHEA] Adverse Reaction (Verified 04/14/17 14:07) calcium carbonate [From DHEA] Adverse Reaction (Verified 04/14/17 14:07) ciprofloxacin [From Cipro] Adverse Reaction (Verified 04/14/17 14:07) dihydroergotamine mesylate [From Dhe] Adverse Reaction (Verified 04/14/17 14:07) Abnormal behavior prasterone (DHEA) [From DHEA] Adverse Reaction (Verified 04/14/17 14:07) Past Medical History - General Information source: Patient - Social History Smoking Status: Current Every Day Smoker Cigarette use (# per day): Yes Chew tobacco use (# tins/day): No Smoking Education Provided: No Family History: Reviewed & Not Pertinent - Past Medical History Cardiac Medical History: Reports: Hx Hypercholesterolemia, Hx Hypertension Pulmonary Medical History: Reports: Hx Sleep Apnea Endocrine Medical History: Reports: Hx Diabetes Mellitus Type 2 Renal/ Medical History: Denies: Hx Peritoneal Dialysis Musculoskeltal Medical History: Reports Hx Arthritis - rheum/osteo, Reports Hx Fibromyalgia Psychiatric Medical History: Reports: Hx Anxiety, Hx Depression, Hx Post Traumatic Stress Disorder Past Surgical History: Reports: Hx Appendectomy, Hx Section, Hx Cholecystectomy, Hx Hysterectomy, Hx Orthopedic Surgery - back. - Immunizations Hx Diphtheria, Pertussis, Tetanus Vaccination: Yes Review of Systems - Review of Systems Notes: REVIEW OF SYSTEMS: CONSTITUTIONAL : Denies fever, chills, or sweats. Denies recent illness. EENT: admit sto dental pain CARDIOVASCULAR: admits to chest pain RESPIRATORY: Denies cough, cold, or chest congestion. Denies shortness of breath, difficulty breathing, or wheezing. GASTROINTESTINAL: admits ot nausea GENITOURINARY: Denies difficulty urinating, painful urination, burning, frequency, blood in urine, or discharge. FEMALE GENITOURINARY: Denies vaginal bleeding, heavy or abnormal periods, irregular periods. Denies vaginal discharge or odor. MUSCULOSKELETAL: Denies back or neck pain or stiffness. Denies joint pain or swelling. SKIN: Denies rash, lesions or sores. HEMATOLOGIC : Denies easy bruising or bleeding. LYMPHATIC: Denies swollen, enlarged glands. NEUROLOGICAL: admits to headache PSYCHIATRIC: Denies anxiety or stress. Denies depression, suicidal ideation, or homicidal ideation. ALL OTHER SYSTEMS REVIEWED AND NEGATIVE. PHYSICAL EXAMINATION: GENERAL: Well-appearing, well-nourished and in no acute distress. HEAD: Atraumatic, normocephalic. EYES: Pupils equal round and reactive to light, extraocular movements intact, conjunctiva are normal. ENT: Dental fracture and dental decay tooth 30 no abscess NECK: Normal range of motion, supple without lymphadenopathy LUNGS: Breath sounds clear to auscultation bilaterally and equal. No wheezes rales or rhonchi. HEART: Regular rate and rhythm without murmurs ABDOMEN: Soft, nontender, nondistended abdomen. No guarding, no rebound. No masses appreciated. Female : deferred Musculoskeletal: Normal range of motion, no pitting or edema. No cyanosis. NEUROLOGICAL: Cranial nerves grossly intact. Normal speech, normal gait. Normal sensory, motor exams PSYCH: Tearful but easily consolable SKIN: Warm, Dry, normal turgor, no rashes or lesions noted. Dictation was performed using [employer] voice recognition software Physical Exam - Vital signs Vitals: Temp Pulse Resp BP Pulse Ox 97.8 F 115 H 20 139/92 H 98 04/14/17 14:09 04/14/17 14:09 04/14/17 14:09 04/14/17 14:09 04/14/17 14:09 Course - Re-evaluation Re-evalutation: 04/14/17 14:37 Patient will be treated for migraine headache, she admits that her chest pain is not cardiac in nature and comes old from her dental pain. Nonetheless cardiac enzymes have been ordered to rule out any abnormality 04/14/17 15:39 Patient's cardiac enzymes are negative I do not believe this is cardiac in nature she will be discharged home at this time After performing a Medical Screening Examination, I estimate there is LOW risk for ACUTE GLAUCOMA, TEMPORAL ARTERITIS, MENINGITIS, INCRANIAL HEMORRHAGE, or ISCHEMIC STROKE thus I consider the discharge disposition reasonable. I have reevaluated this patient multiple times and no significant life threatening changes are noted. The patient and I have discussed the diagnosis and risks, and we agree with discharging home with close follow-up with the understanding that symptoms and presentations can change. We also discussed returning to the Emergency Department immediately if new or worsening symptoms occur. We have discussed the symptoms which are most concerning (e.g., changing or worsening symptoms, new numbness or weakness, vomiting, fever) that necessitate immediate return. - Vital Signs Vital signs: Temp Pulse Resp BP Pulse Ox 97.8 F 115 H 20 139/92 H 98 04/14/17 14:09 04/14/17 14:09 04/14/17 14:09 04/14/17 14:09 04/14/17 14:09 - Laboratory Result Diagrams: 04/14/17 14:48 04/14/17 14:48 Laboratory results interpreted by me: 04/14/17 04/14/17 14:48 14:48 WBC 18.0 H RBC 5.45 H MCH 26.8 L RDW 16.4 H Plt Count 473 H Absolute Neutrophils 12.8 H Anion Gap 20 H Est GFR (Non-Af Amer) 58 L Glucose 186 H Calcium 10.7 H Direct Bilirubin 0.7 H AST 50 H Alkaline Phosphatase 177 H Total Protein 9.8 H Procedures - Additional Procedures Inferior alveolar nerve block performed Notes: 04/14/17 14:52 Using 10 cc of 0.5% bupivacaine without epinephrine dental block performed of the right inferior alveolar nerve with complete resolution no complication Discharge - Discharge Clinical Impression: Pain, dental Headache Qualifiers: Headache type: unspecified Headache chronicity pattern: chronic headache Intractability: not intractable Qualified Code(s): R51 - Headache Condition: Stable Disposition: HOME, SELF-CARE Instructions: Headache ([facility]) Referrals: MITUL GIL MD [Primary Care Provider] - Follow up tomorrow
[2017-04-14 15:00] LABS: ABSOLUTE EOSINOPHILS # (AUTO) 0.2 10^3/uL (0.0-0.6); ABSOLUTE LYMPHOCYTES (AUTO) 4.1 10^3/uL (0.5-4.7); ABSOLUTE MONOCYTES (AUTO) 0.9 10^3/uL (0.1-1.4); ABSOLUTE NEUT (AUTO) 12.8 10^3/uL (1.7-8.2); BASOPHILS % (AUTO) 0.2 % (0-2); EOSINOPHILS % (AUTO) 0.8 % (0-6); HEMATOCRIT 44.1 % (36.0-47.0); HEMOGLOBIN 14.6 g/dL (12.0-15.5); HGB HCT DIFFERENCE -0.3; LYMPHOCYTES % (AUTO) 22.8 % (13-45); MEAN CORPUSCULAR HEMOGLOBIN 26.8 pg (27.0-33.4); MEAN CORPUSCULAR HGB CONC 33.1 g/dL (32.0-36.0); MEAN CORPUSCULAR VOLUME 81 fl (80-97); MONOCYTES % (AUTO) 5.1 % (3-13); RED BLOOD COUNT 5.45 10^6/uL (3.72-5.28); RED CELL DISTRIBUTION WIDTH 16.4 % (11.5-14.0); SEGMENTED NEUTROPHILS % (AUTO) 71.1 % (42-78)
[2017-04-14 15:15] LABS: ALANINE AMINOTRANSFERASE 41 U/L (9-52); ALKALINE PHOSPHATASE 177 U/L (38-126); ASPARTATE AMINO TRANSFERASE 50 U/L (14-36); BILIRUBIN,DIRECT 0.7 mg/dL (0.0-0.4); BILIRUBIN,TOTAL 0.8 mg/dL (0.2-1.3); BLOOD UREA NITROGEN 17 mg/dL (7-20); CALCIUM 10.7 mg/dL (8.4-10.2); CREATINE KINASE 66 U/L (30-135); CREATININE RESULT 0.99 mg/dL (0.52-1.25); GLUCOSE 186 mg/dL (75-110); TOTAL PROTEIN 9.8 g/dL (6.3-8.2)
[2017-04-14 15:27] LABS: CREATINE KINASE MB 0.48 ng/mL (<4.55); TROPONIN I < 0.012 ng/mL
[2017-04-14 15:30] LABS: ANION GAP 20 (5-19); CARBON DIOXIDE 22 mmol/L (22-30); CHLORIDE 100 mmol/L (98-107); POTASSIUM 4.9 mmol/L (3.6-5.0); SODIUM 142.1 mmol/L (137-145)
--- NOTE | 2017-04-14 16:08 | RADIOLOGY REPORT (SQ) ---
EXAM DESCRIPTION: CHEST PA/LAT COMPLETED DATE/TIME: 04/14/2017 3:52 pm REASON FOR STUDY: CP COMPARISON: 10/20/2016 EXAM PARAMETERS: NUMBER OF VIEWS: two views TECHNIQUE: Digital Frontal and Lateral radiographic views of the chest acquired. RADIATION DOSE: NA LIMITATIONS: none FINDINGS: LUNGS AND PLEURA: No opacities, masses or pneumothorax. No pleural effusion. MEDIASTINUM AND HILAR STRUCTURES: No masses or contour abnormalities. HEART AND VASCULAR STRUCTURES: Heart normal size. No evidence for failure. BONES: No acute findings. HARDWARE: None in the chest. OTHER: No other significant finding. IMPRESSION: NO ACUTE RADIOGRAPHIC FINDING IN THE CHEST. TECHNICAL DOCUMENTATION: JOB ID: [id number] [employer]- All Rights Reserved
[2017-04-14 16:36] VITALS: BP 94/65
--- NOTE | 2017-04-14 21:02 | EKG REPORT ---
SEVERITY:- ABNORMAL ECG - SINUS TACHYCARDIA CONSIDER RIGHT VENTRICULAR HYPERTROPHY PROBABLE INFERIOR INFARCT, AGE INDETERMINATE : Confirmed by: Estefany Cade 14-Apr-2017 21:02:14
== END 2017-04-14 16:35 | disposition home or self-care (01) ==
LOC: ER 13:41
PROC: 3E0T3BZ Introduction of Anesthetic Agent into Peripheral Nerves and Plexi, Percutaneous Approach (ICD-10-PCS; principal; 2017-04-14)
DX: K08.89 Other specified disorders of teeth and supporting structures (principal); R51 Headache; R07.9 Chest pain, unspecified; M79.7 Fibromyalgia; F43.10 Post-traumatic stress disorder, unspecified; F41.9 Anxiety disorder, unspecified; F32.9 Major depressive disorder, single episode, unspecified; I25.2 Old myocardial infarction; F17.210 Nicotine dependence, cigarettes, uncomplicated
CPT/HCPCS: 93005; 99285; 96374; 96375; 36415; 82553; 82550; 85025; 80053; 84484; 71020; 93010; 64400; J1200; J1630

== ENCOUNTER 2018-01-13 15:32 | Emergency (ER) | payer BC ==
[2018-01-13 15:40] VITALS: BP 122/82
--- NOTE | 2018-01-13 15:52 | ER Document Report ---
ED Medical Screen (RME) - General Chief Complaint: Dizziness Stated Complaint: DIZZY Time Seen by Provider: 01/13/18 15:44 Notes: RAPID MEDICAL EVALUATION DISCLOSURE I have seen this patient as part of a Rapid Medical Evaluation and, if applicable, placed any initially appropriate orders. The patient will be seen and fully evaluated, including a full history and physical exam, by a provider ( in Main ED or Fast Track) when a room becomes available. 57-year-old female here with complaints of lightheadedness shortness of breath diaphoresis and syncope ongoing for the past few days. This has been going on for the past 1 month episodically but worse over the past week. She has not had any chest pain or tightness but states "I have to breathe deep". Her blood pressures over the past week have been in the 80s and 90s and this is abnormal for her. She reports her normal blood pressures are in the 120s. EXAM CTAB RRR TRAVEL OUTSIDE OF THE [place] IN LAST 30 DAYS: No - Related Data Allergies/Adverse Reactions: metformin Allergy (Verified 04/14/17 14:07) calcium [From DHEA] Adverse Reaction (Verified 04/14/17 14:07) calcium carbonate [From DHEA] Adverse Reaction (Verified 04/14/17 14:07) ciprofloxacin [From Cipro] Adverse Reaction (Verified 04/14/17 14:07) dihydroergotamine mesylate [From Dhe] Adverse Reaction (Verified 04/14/17 14:07) Abnormal behavior prasterone (DHEA) [From DHEA] Adverse Reaction (Verified 04/14/17 14:07) Past Medical History - Past Medical History Cardiac Medical History: Reports: Hx Hypercholesterolemia, Hx Hypertension Pulmonary Medical History: Reports: Hx Sleep Apnea Endocrine Medical History: Reports: Hx Diabetes Mellitus Type 2 Renal/ Medical History: Denies: Hx Peritoneal Dialysis Musculoskeltal Medical History: Reports Hx Arthritis - rheum/osteo, Reports Hx Fibromyalgia Psychiatric Medical History: Reports: Hx Anxiety, Hx Depression, Hx Post Traumatic Stress Disorder Past Surgical History: Reports: Hx Appendectomy, Hx Section, Hx Cholecystectomy, Hx Hysterectomy, Hx Orthopedic Surgery - back. - Immunizations Hx Diphtheria, Pertussis, Tetanus Vaccination: Yes Physical Exam - Vital signs Vitals: Temp Pulse Resp BP Pulse Ox 98.1 F 100 20 122/82 96 01/13/18 15:38 01/13/18 15:38 01/13/18 15:38 01/13/18 15:38 01/13/18 15:38 Course - Vital Signs Vital signs: Temp Pulse Resp BP Pulse Ox 98.1 F 100 20 122/82 96 01/13/18 15:38 01/13/18 15:38 01/13/18 15:38 01/13/18 15:38 01/13/18 15:38
== END 2018-01-13 16:02 | disposition left against medical advice (07) ==
LOC: ER 15:32
DX: R42 Dizziness and giddiness (principal); E78.00 Pure hypercholesterolemia, unspecified; I10 Essential (primary) hypertension; E11.9 Type 2 diabetes mellitus without complications; Z90.49 Acquired absence of other specified parts of digestive tract; Z90.710 Acquired absence of both cervix and uterus; Z88.3 Allergy status to other anti-infective agents
CPT/HCPCS: 99281

== ENCOUNTER 2018-02-04 04:27 | Emergency (ER) | payer BC ==
--- NOTE | 2018-02-04 05:18 | ER Document Report ---
ED Medical Screen (RME) - General Chief Complaint: Chest Pain Stated Complaint: CHEST PAIN Mode of Arrival: Medic Information source: Patient, Relative Notes: Patient is a 57-year-old female who presents with chief complaint of chest pain that started 20 minutes prior to arrival. Patient reports that at approximately 130 this morning she ate a plate of spaghetti and then began having chest pain after lying down. Patient denies any nausea, vomiting, shortness of breath or any other associated symptoms. Patient reports the pain is right on her left chest wall and denies any radiation. Patient is unable to describe the pain however she denies it being stabbing or feeling like pressure. Patient was given 324 mg of aspirin by EMS. Patient does report a past medical history of myocardial infarction 2 years ago, patient denies having any cardiac cath done. Patient reports that the stress test at that time was normal. I have greeted and performed a rapid initial assessment of this patient. A comprehensive ED assessment and evaluation of the patient, analysis of test results and completion of the medical decision making process will be conducted by additional ED providers. TRAVEL OUTSIDE OF THE [place] IN LAST 30 DAYS: No - Related Data Allergies/Adverse Reactions: metformin Allergy (Verified 04/14/17 14:07) calcium [From DHEA] Adverse Reaction (Verified 04/14/17 14:07) calcium carbonate [From DHEA] Adverse Reaction (Verified 04/14/17 14:07) ciprofloxacin [From Cipro] Adverse Reaction (Verified 04/14/17 14:07) dihydroergotamine mesylate [From Dhe] Adverse Reaction (Verified 04/14/17 14:07) Abnormal behavior prasterone (DHEA) [From DHEA] Adverse Reaction (Verified 04/14/17 14:07) Past Medical History - General Information source: Patient - Social History Chew tobacco use (# tins/day): No Frequency of alcohol use: None Drug Abuse: None Lives with: Family Family history: Reviewed & Not Pertinent - Past Medical History Cardiac Medical History: Reports: Hx Hypercholesterolemia, Hx Hypertension Pulmonary Medical History: Reports: Hx Sleep Apnea Endocrine Medical History: Reports: Hx Diabetes Mellitus Type 2 Renal/ Medical History: Denies: Hx Peritoneal Dialysis Musculoskeltal Medical History: Reports Hx Arthritis - rheum/osteo, Reports Hx Fibromyalgia Psychiatric Medical History: Reports: Hx Anxiety, Hx Depression, Hx Post Traumatic Stress Disorder Past Surgical History: Reports: Hx Appendectomy, Hx Section, Hx Cholecystectomy, Hx Hysterectomy, Hx Orthopedic Surgery - back. - Immunizations Hx Diphtheria, Pertussis, Tetanus Vaccination: Yes Review of Systems - Review of Systems Constitutional: No symptoms reported EENT: No symptoms reported Cardiovascular: Chest pain Respiratory: No symptoms reported Gastrointestinal: No symptoms reported Genitourinary: No symptoms reported Female Genitourinary: No symptoms reported Musculoskeletal: No symptoms reported Skin: No symptoms reported Hematologic/Lymphatic: No symptoms reported Neurological/Psychological: No symptoms reported Physical Exam - Vital signs Vitals: Temp Pulse Resp BP Pulse Ox 98 F 86 26 H 140/89 H 99 02/04/18 04:52 02/04/18 04:52 02/04/18 04:52 02/04/18 04:52 02/04/18 04:52 - Notes Notes: PHYSICAL EXAMINATION: GENERAL: Well-appearing, well-nourished and in no acute distress. Patient very anxious. LUNGS: Breath sounds clear to auscultation bilaterally and equal. No wheezes rales or rhonchi. HEART: Regular rate and rhythm without murmurs ABDOMEN: Soft, nontender, nondistended abdomen. No guarding, no rebound. No masses appreciated. SKIN: Warm, Dry, normal turgor, no rashes or lesions noted. Course - Vital Signs Vital signs: Temp Pulse Resp BP Pulse Ox 98 F 86 26 H 140/89 H 99 02/04/18 04:52 02/04/18 04:52 02/04/18 04:52 02/04/18 04:52 02/04/18 04:52 Doctor's Discharge - Discharge Referrals: MITUL GIL MD [Primary Care Provider] - Follow up as needed
[2018-02-04 05:49] LABS: APPEARANCE,URINE CLEAR; BILIRUBIN,URINE NEGATIVE (NEGATIVE); COLOR,URINE STRAW; GLUCOSE, URINE >=500 mg/dL (NEGATIVE); KETONES,URINE NEGATIVE (NEGATIVE); LEUKOCYTE ESTERASE,URINE NEGATIVE (NEGATIVE); NITRITE,URINE NEGATIVE (NEGATIVE); PROTEIN,URINE NEGATIVE (NEGATIVE); UROBILINOGEN,URINE NEGATIVE mg/dL (<2.0)
[2018-02-04 05:52] LABS: ABSOLUTE BASOPHILS # (AUTO) 0.1 10^3/uL (0.0-0.2); ABSOLUTE EOSINOPHILS # (AUTO) 0.1 10^3/uL (0.0-0.6); ABSOLUTE LYMPHOCYTES (AUTO) 4.2 10^3/uL (0.5-4.7); ABSOLUTE MONOCYTES (AUTO) 1.4 10^3/uL (0.1-1.4); ABSOLUTE NEUT (AUTO) 13.3 10^3/uL (1.7-8.2); BASOPHILS % (AUTO) 0.7 % (0-2); EOSINOPHILS % (AUTO) 0.6 % (0-6); HEMATOCRIT 42.5 % (36.0-47.0); HEMOGLOBIN 13.8 g/dL (12.0-15.5); LYMPHOCYTES % (AUTO) 22.1 % (13-45); MEAN CORPUSCULAR HEMOGLOBIN 26.7 pg (27.0-33.4); MEAN CORPUSCULAR HGB CONC 32.4 g/dL (32.0-36.0); MEAN CORPUSCULAR VOLUME 83 fl (80-97); MONOCYTES % (AUTO) 7.3 % (3-13); PLATELET COUNT 429 10^3/uL (150-450); RED BLOOD COUNT 5.15 10^6/uL (3.72-5.28); RED CELL DISTRIBUTION WIDTH 16.1 % (11.5-14.0); SEGMENTED NEUTROPHILS % (AUTO) 69.3 % (42-78); TOTAL CELLS COUNTED % (AUTO) 100 %; WHITE BLOOD COUNT 19.1 10^3/uL (4.0-10.5)
[2018-02-04 06:21] LABS: ALANINE AMINOTRANSFERASE 26 U/L (9-52); ALBUMIN 4.6 g/dL (3.5-5.0); ALKALINE PHOSPHATASE 114 U/L (38-126); ASPARTATE AMINO TRANSFERASE 24 U/L (14-36); BILIRUBIN,DIRECT 0.5 mg/dL (0.0-0.4); BILIRUBIN,TOTAL 0.5 mg/dL (0.2-1.3); BLOOD UREA NITROGEN 25 mg/dL (7-20); CALCIUM 9.7 mg/dL (8.4-10.2); CHLORIDE 104 mmol/L (98-107); CREATINE KINASE 50 U/L (30-135); GLUCOSE 103 mg/dL (75-110); POTASSIUM 4.4 mmol/L (3.6-5.0); TOTAL PROTEIN 8.6 g/dL (6.3-8.2)
[2018-02-04 06:27] LABS: CARBON DIOXIDE 19 mmol/L (22-30); SODIUM 143.5 mmol/L (137-145)
[2018-02-04 06:30] LABS: ANION GAP 21 (5-19)
[2018-02-04 06:32] LABS: CREATINE KINASE MB < 0.22 ng/mL (<4.55); TROPONIN I < 0.012 ng/mL
--- NOTE | 2018-02-04 06:56 | RADIOLOGY REPORT (SQ) ---
EXAM DESCRIPTION: XR CHEST 1 VIEW COMPLETED DATE/TME: 02/04/2018 05:13 EXAM DESCRIPTION: Single view of the chest CLINICAL HISTORY: chest pain COMPARISON: 04/14/2017 FINDINGS: Single frontal view of the chest. Atherosclerotic calcification aortic arch. Heart is not enlarged. Leads overlie the chest. No consolidation, pneumothorax, or pleural effusion. No displaced rib fractures identified. Upper abdominal soft tissues are unremarkable. IMPRESSION: 1. No acute pulmonary process identified. 2011 [employer]- All Rights Reserved
--- NOTE | 2018-02-04 06:56 | ER Document Report ---
ED General - General Mode of Arrival: Medic Information source: Patient TRAVEL OUTSIDE OF THE [place] IN LAST 30 DAYS: No <YAHAIRA BARRETT - Last Filed: 02/04/18 07:01> <ANGELY HORAN - Last Filed: 02/04/18 08:33> - General Chief Complaint: Chest Pain Stated Complaint: CHEST PAIN Time Seen by Provider: 02/04/18 05:19 Notes: Patient is a 57-year-old female with HTN, fibromyalgia, rheumatoid arthritis, PTSD, and nSTEMI (2015) presents to the emergency department complaining of chest pain onset this morning. Patient states she began to have throbbing left sided chest pain after eating spaghetti and laying down around 0130 . She states she also became extremely diaphoretic. Patient states upon arrival to the emergency department she belched twice and immediately felt better. Patient denies any nausea, vomiting or shortness of breath. Patient was diagnosed with pneumonia and a nSTEMI on March 12, 2016. Patient states she had a negative stress test shortly after. She is also know to have elevated WBCs. (YAHAIRA BARRETT) - Related Data Allergies/Adverse Reactions: metformin Allergy (Verified 04/14/17 14:07) calcium [From DHEA] Adverse Reaction (Verified 04/14/17 14:07) calcium carbonate [From DHEA] Adverse Reaction (Verified 04/14/17 14:07) ciprofloxacin [From Cipro] Adverse Reaction (Verified 04/14/17 14:07) dihydroergotamine mesylate [From Dhe] Adverse Reaction (Verified 04/14/17 14:07) Abnormal behavior prasterone (DHEA) [From DHEA] Adverse Reaction (Verified 04/14/17 14:07) Past Medical History - General Information source: Patient - Social History Smoking Status: Former Smoker Chew tobacco use (# tins/day): No Frequency of alcohol use: None Drug Abuse: None Lives with: Family Family History: Reviewed & Not Pertinent Patient has suicidal ideation: No Patient has homicidal ideation: No - Past Medical History Cardiac Medical History: Reports: Hx Hypercholesterolemia, Hx Hypertension Pulmonary Medical History: Reports: Hx Sleep Apnea Endocrine Medical History: Reports: Hx Diabetes Mellitus Type 2 Musculoskeltal Medical History: Reports Hx Arthritis - rheum/osteo, Reports Hx Fibromyalgia Psychiatric Medical History: Reports: Hx Anxiety, Hx Depression, Hx Post Traumatic Stress Disorder Past Surgical History: Reports: Hx Appendectomy, Hx Section, Hx Cholecystectomy, Hx Hysterectomy, Hx Orthopedic Surgery - back. - Immunizations Hx Diphtheria, Pertussis, Tetanus Vaccination: Yes <YAHAIRA BARRETT - Last Filed: 02/04/18 07:01> Review of Systems - Review of Systems Constitutional: No symptoms reported EENT: No symptoms reported Cardiovascular: See HPI, Chest pain Respiratory: No symptoms reported Gastrointestinal: No symptoms reported Genitourinary: No symptoms reported Female Genitourinary: No symptoms reported Musculoskeletal: No symptoms reported Skin: No symptoms reported Hematologic/Lymphatic: No symptoms reported Neurological/Psychological: No symptoms reported -: Yes All other systems reviewed and negative <YAHAIRA BARRETT - Last Filed: 02/04/18 07:01> Physical Exam - General General appearance: Alert, Anxious In distress: None - HEENT Head: Normocephalic, Atraumatic Eyes: Normal Conjunctiva: Normal Extraocular movements intact: Yes Pupils: PERRL Neck: Normal - Respiratory Respiratory status: No respiratory distress Chest status: Tender - Left lateral pectoralis region tender to palpation, seems to reproduce chief complaint. - Cardiovascular Rhythm: Regular Heart sounds: Normal auscultation Murmur: No Friction rub: No Gallop: None auscultated - Abdominal Inspection: Obese Distension: No distension Bowel sounds: Normal Tenderness: Nontender Organomegaly: No organomegaly - Back Back: Normal - Extremities General upper extremity: Normal ROM General lower extremity: Normal ROM - Neurological Neuro grossly intact: Yes Cognition: Normal Orientation: AAOx4 [place] Coma Scale Eye Opening: Spontaneous [place] Coma Scale Verbal: Oriented [place] Coma Scale Motor: Obeys Commands [place] Coma Scale Total: 15 Speech: Normal - Psychological Associated symptoms: Anxious - Skin Skin Temperature: Warm Skin Moisture: Dry Skin Color: Normal <YAHAIRA BARRETT - Last Filed: 02/04/18 07:01> - Vital signs Vitals: Resp 13 02/04/18 04:42 Course - Laboratory Result Diagrams: 02/04/18 05:20 02/04/18 05:20 <ARNOLDTEDDYSHANNAN - Last Filed: 02/04/18 07:01> - Laboratory Result Diagrams: 02/04/18 05:20 02/04/18 05:20 - Diagnostic Test Radiology reviewed: Image reviewed, Reports reviewed - Chest x-ray does not show any acute pulmonary process - EKG Interpretation by Me EKG shows normal: Sinus rhythm, [place], Intervals. abnormal: QRS Complexes - Borderline inferior Q waves, ST-T Waves - Nonspecific anterior T abnormalities Rate: Normal - 86 Heart block present: 1st Degree When compared to previous EKG there are: No significant change <ANGELY HORAN - Last Filed: 02/04/18 08:33> - Re-evaluation Re-evalutation: 02/04/18 08:31 The patient's daughter needed to leave to go to work. The patient could not remain for a repeat troponin, but was agreeable to having the troponin drawn, signing out AMA, and waiting at home for a phone call in case the troponin was elevated. Patient's repeat troponin remained in the undetectable range. (ANGELY HORAN) - Vital Signs Vital signs: Temp Pulse Resp BP Pulse Ox 98 F 86 19 138/92 H 99 02/04/18 04:52 02/04/18 04:52 02/04/18 07:16 02/04/18 07:16 02/04/18 07:16 - Laboratory Laboratory results interpreted by me: 02/04/18 02/04/18 02/04/18 05:15 05:20 05:20 WBC 19.1 H MCH 26.7 L RDW 16.1 H Absolute Neutrophils 13.3 H Carbon Dioxide 19 L Anion Gap 21 H BUN 25 H Est GFR (Non-Af Amer) 49 L Direct Bilirubin 0.5 H Total Protein 8.6 H Urine Glucose (UA) >=500 H Discharge <YAHAIRA BARRETT - Last Filed: 02/04/18 07:01> <ANGELY HORAN - Last Filed: 02/04/18 08:33> - Discharge Clinical Impression: Acute chest wall pain, Anxiety Leukocytosis Qualifiers: Leukocytosis type: unspecified Qualified Code(s): D72.829 - Elevated white blood cell count, unspecified Condition: Stable Disposition: AGAINST MEDICAL ADVICE Additional Instructions: Chest Wall Pain: Your chest pain has been diagnosed as coming from the chest wall. This is often caused by straining the muscles or joints in the chest during physical activity, direct trauma, coughing, or vigorous vomiting. Persons with arthritis are especially prone to this type of pain, due to inflammation of the cartilage joints near the breast bone. Occasionally, no cause can be found. Rest from strenuous physical activity. This kind of chest pain is usually made worse by movement of the chest. Depending on the symptoms, we may prescribe medicine for pain, muscle relaxation, and antiinflammatory effects. If the pain is new, and seems to be due to muscle strain, cold packs can help. Otherwise, apply gentle warmth to the painful area for 15 minutes every hour or two. You should contact the doctor immediately if things change. Further evaluation is needed if you develop a fever or cough, if the nature of the pain changes, or if you become short of breath. Your chest pain does appear to be caused by a left lateral pectoralis muscle strain in your chest wall. Your initial iliac enzyme called her troponin was undetectable. You have elected not to wait for the results of the repeat test and are leaving AGAINST MEDICAL ADVICE. You are agreeable to returning if that second troponin does come back elevated. We will call you within the next 2 hours if that second troponin is elevated. Follow-up with Dr. Gil this week for recheck. RETURN TO THE EMERGENCY ROOM IF ANY NEW OR WORSENING SYMPTOMS. Referrals: MITUL GIL MD [Primary Care Provider] - Follow up as needed Scribe Attestation: 02/04/18 07:11 I personally performed the services described in the documentation, reviewed and edited the documentation which was dictated to the scribe in my presence, and it accurately records my words and actions. (ANGELY HORAN) Scribe Documentation - Scribe Written by Varghese:: Varghese Reynolds, 02/04/2018 07:00 acting as scribe for :: Matty <YAHAIRA BARRETT - Last Filed: 02/04/18 07:01>
[2018-02-04 07:21] VITALS: BP 138/92
--- NOTE | 2018-02-04 15:34 | EKG REPORT ---
SEVERITY:- ABNORMAL ECG - SINUS RHYTHM FIRST DEGREE AV BLOCK NONSPECIFIC T ABNORMALITIES, ANTERIOR LEADS : Confirmed by: Monica Hatfield MD 04-Feb-2018 15:33:51
== END 2018-02-04 07:39 | disposition left against medical advice (07) ==
LOC: ER 04:27
DX: R07.89 Other chest pain (principal); F41.9 Anxiety disorder, unspecified; D72.829 Elevated white blood cell count, unspecified; R14.2 Eructation; R61 Generalized hyperhidrosis; I44.0 Atrioventricular block, first degree; I10 Essential (primary) hypertension; I25.2 Old myocardial infarction; E11.9 Type 2 diabetes mellitus without complications; Z87.01 Personal history of pneumonia (recurrent); Z88.8 Allergy status to other drugs, medicaments and biological substances; Z87.891 Personal history of nicotine dependence
CPT/HCPCS: 36415; 71045; 80053; 81001; 82550; 82553; 84484; 85025; 93005; 93010; 99285

== ENCOUNTER 2018-02-12 10:28 | Observation (INO) | payer MEDICARE, BC ==
[2018-02-12] MEDS ORDERED: 1/2 NORMAL SALINE 1,000 ML IV PRN (11:12)
[2018-02-12] MEDS: LORAZEPAM 1 MG TABLET PO SCH ×3 (12:25→23:04)
[2018-02-12 12:28] LABS: HEMATOCRIT 37.5 % (36.0-47.0); HEMOGLOBIN 12.2 g/dL (12.0-15.5); MEAN CORPUSCULAR HEMOGLOBIN 26.8 pg (27.0-33.4); MEAN CORPUSCULAR HGB CONC 32.6 g/dL (32.0-36.0); MEAN CORPUSCULAR VOLUME 82 fl (80-97); PLATELET COUNT 364 10^3/uL (150-450); RED BLOOD COUNT 4.56 10^6/uL (3.72-5.28); RED CELL DISTRIBUTION WIDTH 16.3 % (11.5-14.0); WHITE BLOOD COUNT 14.2 10^3/uL (4.0-10.5)
[2018-02-12 12:45] LABS: ALANINE AMINOTRANSFERASE 31 U/L (9-52); ALBUMIN 4.2 g/dL (3.5-5.0); ALKALINE PHOSPHATASE 84 U/L (38-126); ANION GAP 15 (5-19); ASPARTATE AMINO TRANSFERASE 22 U/L (14-36); BILIRUBIN,DIRECT 0.3 mg/dL (0.0-0.4); BILIRUBIN,TOTAL 0.3 mg/dL (0.2-1.3); BLOOD UREA NITROGEN 25 mg/dL (7-20); CARBON DIOXIDE 23 mmol/L (22-30); CHLORIDE 103 mmol/L (98-107); GLUCOSE 91 mg/dL (75-110); POTASSIUM 4.4 mmol/L (3.6-5.0); SODIUM 140.7 mmol/L (137-145); TOTAL PROTEIN 7.6 g/dL (6.3-8.2)
[2018-02-12] MEDS ORDERED: PROMETHAZINE HCL INJ 25 MG/1 ML VIAL IV PRN (13:10)
[2018-02-12 13:21] LABS: APPEARANCE,URINE CLEAR; BILIRUBIN,URINE NEGATIVE (NEGATIVE); COLOR,URINE STRAW; GLUCOSE, URINE 150 mg/dL (NEGATIVE); KETONES,URINE NEGATIVE (NEGATIVE); LEUKOCYTE ESTERASE,URINE NEGATIVE (NEGATIVE); NITRITE,URINE NEGATIVE (NEGATIVE); PROTEIN,URINE NEGATIVE (NEGATIVE); URINE SPECIFIC GRAVITY 1.011; UROBILINOGEN,URINE NEGATIVE mg/dL (<2.0)
[2018-02-12] MEDS: MORPHINE SULFATE 10 MG/ML INJ IV PRN ×3 (14:23→23:04)
[2018-02-12] MEDS: ONDANSETRON 4 MG TAB.RAPDIS PO SCH (20:39)
[2018-02-12] MEDS: PROMETHAZINE HCL INJ 25 MG/1 ML VIAL IV PRN (20:39)
--- NOTE | 2018-02-12 20:40 | PDOC H&P ---
History of Present Illness Admission Date/PCP: 02/12/18 10:28 MITUL GIL MD History of Present Illness: RADHA POSADAS is a 57 year old female, she came to the office for evaluation of persistent vomiting, headache, neck pain, she said she felt numbness in the soles of her feet, lost balance and she fell forward hitting the neck and the head, she has a history of migraine headache, she said the fall provoked headache. The headache is severe, the vomiting is torrential, she came to the office with her daughter, she was admitted directly from the office to the hospital for management of her symptoms Past Medical History Cardiac Medical History: Reports: Myocardial Infarction, Hypertension Pulmonary Medical History: Reports: Sleep Apnea Endocrine Medical History: Reports: Diabetes Mellitus Type 2 Musculoskeltal Medical History: Reports: Arthritis, Fibromyalgia Psychiatric Medical History: Reports: Depression, Post Traumatic Stress Disorder Past Surgical History Past Surgical History: Reports: Appendectomy, Section, Cholecystectomy , Hysterectomy, Orthopedic Surgery - back. Social History Smoking Status: Never Smoker Frequency of Alcohol Use: None Hx Recreational Drug Use: No Drugs: None Hx Prescription Drug Abuse: No Family History Family History: Reviewed & Not Pertinent Parental Family History Reviewed: Yes Children Family History Reviewed: Yes Sibling(s) Family History Reviewed.: Yes Medication/Allergy Home Medications: Aspirin [Aspirin 81 mg Chewable Tablet] 81 mg PO DAILY 03/27/17 Clopidogrel Bisulfate [Clopidogrel] 75 mg PO DAILY 03/27/17 Ergocalciferol (Vitamin D2) [Drisdol 50,000 unit (1.25MG) Capsule] 50,000 unit PO MO@1000 03/27/17 Hydroxychloroquine Sulfate [Plaquenil 200 mg Tablet] 200 mg PO Q12 03/27/17 Lisinopril/Hydrochlorothiazide [Lisinopril-Hctz 20-12.5 mg Tab] 1 tab PO DAILY 03/27/17 Lorazepam [Ativan 1 mg Tablet] 1 mg PO Q6 03/27/17 Simvastatin [Zocor 20 mg Tablet] 20 mg PO QHS 03/27/17 Dulaglutide [Trulicity] 0.75 mg SQ AVLAREZ@1000 02/12/18 Empagliflozin/Linagliptin [Glyxambi 25 mg-5 mg Tablet] 1 tab PO DAILY 02/12/18 Gabapentin [Gralise] 1,800 mg PO QHS 02/12/18 Insulin Glargine,Hum.rec.anlog [Basaglar Kwikpen U-100] 54 unit SQ DAILY Meloxicam [Mobic] 7.5 mg PO DAILY 02/12/18 Ondansetron [Zofran Odt 4 mg Tablet] 4 mg PO Q12 02/12/18 Tramadol HCl [Ultram 50 mg Tablet] 50 mg PO Q8 02/12/18 Vortioxetine Hydrobromide [Brintellix] 10 mg PO DAILY 02/12/18 Allergies/Adverse Reactions: metformin Allergy (Verified 04/14/17 14:07) calcium [From DHEA] Adverse Reaction (Verified 04/14/17 14:07) calcium carbonate [From DHEA] Adverse Reaction (Verified 04/14/17 14:07) ciprofloxacin [From Cipro] Adverse Reaction (Verified 04/14/17 14:07) dihydroergotamine mesylate [From Dhe] Adverse Reaction (Verified 04/14/17 14:07) Abnormal behavior prasterone (DHEA) [From DHEA] Adverse Reaction (Verified 04/14/17 14:07) Review of Systems Constitutional: PRESENT: headache(s). ABSENT: chills, fever(s), weight gain, weight loss Eyes: ABSENT: visual disturbances Ears: ABSENT: hearing changes Cardiovascular: ABSENT: chest pain, dyspnea on exertion, edema, orthropnea, palpitations Respiratory: ABSENT: cough, hemoptysis Gastrointestinal: PRESENT: vomiting. ABSENT: abdominal pain, constipation, diarrhea, hematemesis, hematochezia, nausea Genitourinary: ABSENT: dysuria, hematuria Musculoskeletal: ABSENT: joint swelling Integumentary: ABSENT: rash, wounds Neurological: ABSENT: abnormal gait, abnormal speech, confusion, dizziness, focal weakness, syncope Psychiatric: ABSENT: anxiety, depression, homidical ideation, suicidal ideation Endocrine: ABSENT: cold intolerance, heat intolerance, menstrual abnormalities, polydipsia, polyuria Hematologic/Lymphatic: ABSENT: easy bleeding, easy bruising, lymphadenopathy Physical Exam Vital Signs: Temp Pulse Resp BP Pulse Ox 97.7 F 83 18 91/57 L 97 02/12/18 19:38 02/12/18 19:38 02/12/18 16:39 02/12/18 19:38 02/12/18 19:38 Intake & Output 02/11/18 02/12/18 02/13/18 06:59 06:59 06:59 Intake Total 488 Output Total 300 Balance 188 Weight 107.3 kg General appearance: PRESENT: no acute distress, well-developed, well-nourished Head exam: PRESENT: atraumatic, normocephalic Eye exam: PRESENT: conjunctiva pink, EOMI, PERRLA Ear exam: PRESENT: normal external ear exam Mouth exam: PRESENT: moist, tongue midline Neck exam: PRESENT: full ROM Respiratory exam: PRESENT: clear to auscultation hilda Cardiovascular exam: PRESENT: RRR, +S1, +S2 Pulses: PRESENT: normal dorsalis pedis pul, +2 pedal pulses bilateral Vascular exam: PRESENT: normal capillary refill GI/Abdominal exam: PRESENT: normal bowel sounds, soft Rectal exam: PRESENT: deferred Neurological exam: PRESENT: alert, awake, oriented to person, oriented to place , oriented to time, oriented to situation, CN II-XII grossly intact Psychiatric exam: PRESENT: appropriate affect, normal mood Skin exam: PRESENT: dry, intact, warm Results Laboratory Results: 02/12/18 12:18 02/12/18 12:18 02/12/18 02/12/18 02/12/18 12:18 12:18 12:52 WBC 14.2 H RBC 4.56 Hgb 12.2 Hct 37.5 MCV 82 MCH 26.8 L MCHC 32.6 RDW 16.3 H Plt Count 364 Sodium 140.7 Potassium 4.4 Chloride 103 Carbon Dioxide 23 Anion Gap 15 BUN 25 H Creatinine 1.09 Est GFR ( Amer) > 60 Est GFR (Non-Af Amer) 51 L Glucose 91 Calcium 10.0 Total Bilirubin 0.3 AST 22 ALT 31 Alkaline Phosphatase 84 Total Protein 7.6 Albumin 4.2 Urine Color STRAW Urine Appearance CLEAR Urine pH 5.0 Ur Specific [place] 1.011 Urine Protein NEGATIVE Urine Glucose (UA) 150 H Urine Ketones NEGATIVE Urine Blood NEGATIVE Urine Nitrite NEGATIVE Ur Leukocyte Esterase NEGATIVE Urine WBC (Auto) 2 Assessment & Plan - Diagnosis (1) Intractable vomiting Qualifiers: Vomiting type: unspecified Nausea presence: with nausea Qualified Code(s) : R11.2 - Nausea with vomiting, unspecified Is this a current diagnosis for this admission?: Yes Plan: She is admitted for management (2) Headache Qualifiers: Headache type: unspecified Is this a current diagnosis for this admission?: Yes
[2018-02-12] MEDS: TRAMADOL HCL 50 MG TABLET PO SCH (20:42)
[2018-02-12] MEDS: INSULIN GLARGINE,HUM.REC.ANLOG 1,000 UNIT/10 ML UNIT SUBCUT SCH (20:42)
[2018-02-12] MEDS ORDERED: (PENDING PHARMACY ID) (Gabapentin [Gralise] 1,800 MG) PO SCH (22:00)
[2018-02-12] MEDS: HYDROXYCHLOROQUINE SULFATE 200 MG TABLET PO SCH (23:47)
[2018-02-13] MEDS ORDERED: LORAZEPAM 1 MG TABLET PO SCH
[2018-02-13] MEDS: MORPHINE SULFATE 10 MG/ML INJ IV PRN ×4 (03:12→23:36)
[2018-02-13] MEDS: PROMETHAZINE HCL INJ 25 MG/1 ML VIAL IV PRN ×3 (03:12→23:28)
[2018-02-13] MEDS: TRAMADOL HCL 50 MG TABLET PO SCH ×3 (05:47→22:10)
[2018-02-13] MEDS: LORAZEPAM 1 MG TABLET PO SCH ×4 (05:47→23:28)
[2018-02-13] MEDS ORDERED: EMPAGLIFLOZIN PO SCH (10:00)
[2018-02-13] MEDS ORDERED: (PENDING PHARMACY ID) (Lisinopril/Hydrochlorothiazide [Lisinopril-Hctz 20-12.5 Mg Tab] 1 T PO SCH (10:00)
[2018-02-13] MEDS ORDERED: LINAGLIPTIN PO SCH (10:00)
[2018-02-13] MEDS ORDERED: ASPIRIN 81 MG TABLET, CHEWABLE PO SCH (10:00)
[2018-02-13] MEDS ORDERED: CLOPIDOGREL BISULFATE 75 MG TABLET PO SCH (10:00)
[2018-02-13] MEDS ORDERED: INSULIN GLARGINE,HUM.REC.ANLOG 300 UNIT/3 ML INSULN.PEN SUBCUT SCH (10:00)
[2018-02-13] MEDS ORDERED: HYDROCHLOROTHIAZIDE 12.5 MG CAPSULE PO SCH (10:00)
[2018-02-13] MEDS ORDERED: (PENDING PHARMACY ID) (Vortioxetine Hydrobromide [Trintellix] 10 MG) PO SCH (10:00)
[2018-02-13] MEDS ORDERED: MELOXICAM 7.5 MG TABLET PO SCH (10:00)
[2018-02-13] MEDS ORDERED: LISINOPRIL 10 MG TABLET PO SCH (10:00)
[2018-02-13] MEDS: ONDANSETRON 4 MG TAB.RAPDIS PO SCH ×2 (10:09→22:09)
[2018-02-13] MEDS: HYDROXYCHLOROQUINE SULFATE 200 MG TABLET PO SCH ×2 (10:09→22:09)
--- NOTE | 2018-02-13 14:42 | PDOC DISCHARGE SUMMARY ---
General - Admit/Disc Date/PCP Admission Date/Primary Care Provider: 02/12/18 10:28 MITUL GIL MD Discharge Date: 02/13/18 - Discharge Diagnosis (1) Intractable vomiting Is this a current diagnosis for this admission?: Yes (2) Headache Is this a current diagnosis for this admission?: Yes - Additional Information Home Medications: Aspirin [Aspirin 81 mg Chewable Tablet] 81 mg PO DAILY 03/27/17 Clopidogrel Bisulfate [Clopidogrel] 75 mg PO DAILY 03/27/17 Ergocalciferol (Vitamin D2) [Drisdol 50,000 unit (1.25MG) Capsule] 50,000 unit PO MO@1000 03/27/17 Hydroxychloroquine Sulfate [Plaquenil 200 mg Tablet] 200 mg PO Q12 03/27/17 Lisinopril/Hydrochlorothiazide [Lisinopril-Hctz 20-12.5 mg Tab] 1 tab PO DAILY 03/27/17 Lorazepam [Ativan 1 mg Tablet] 1 mg PO Q6 03/27/17 Simvastatin [Zocor 20 mg Tablet] 20 mg PO QHS 03/27/17 Dulaglutide [Trulicity] 0.75 mg SQ ALVAREZ@1000 02/12/18 Empagliflozin/Linagliptin [Glyxambi 25 mg-5 mg Tablet] 1 tab PO DAILY 02/12/18 Gabapentin [Gralise] 1,800 mg PO QHS 02/12/18 Insulin Glargine,Hum.rec.anlog [Basaglar Kwikpen U-100] 54 unit SQ DAILY Meloxicam [Mobic] 7.5 mg PO DAILY 02/12/18 Ondansetron [Zofran Odt 4 mg Tablet] 4 mg PO Q12 02/12/18 Tramadol HCl [Ultram 50 mg Tablet] 50 mg PO Q8 02/12/18 Vortioxetine Hydrobromide [Trintellix] 10 mg PO DAILY 02/12/18 History of Present Illness History of Present Illness: RADHA POSADAS is a 57 year old female, she came to the office for evaluation of persistent vomiting, headache, neck pain, she said she felt numbness in the soles of her feet, lost balance and she fell forward hitting the neck and the head, she has a history of migraine headache, she said the fall provoked headache. The headache is severe, the vomiting is torrential, she came to the office with her daughter, she was admitted directly from the office to the hospital for management of her symptoms Hospital Course Hospital Course: She was admitted for the management of intractable vomiting, headaches after she fell due to loss of balance. She was brought in for observation, she was treated with IV morphine, Phenergan and continued on her regular home medications Physical Exam Vital Signs: Temp Pulse Resp BP Pulse Ox 98.1 F 102 H 16 102/65 100 02/13/18 11:19 02/13/18 11:19 02/13/18 11:19 02/13/18 11:19 02/13/18 11:19 Intake & Output 02/12/18 02/13/18 02/14/18 06:59 06:59 06:59 Intake Total 1208 840 Output Total 2800 Balance -1592 840 Weight 107.3 kg General appearance: PRESENT: no acute distress, well-developed, well-nourished Head exam: PRESENT: atraumatic, normocephalic Eye exam: PRESENT: conjunctiva pink, EOMI, PERRLA Ear exam: PRESENT: normal external ear exam Mouth exam: PRESENT: moist, tongue midline Neck exam: PRESENT: full ROM Respiratory exam: PRESENT: clear to auscultation hilda Cardiovascular exam: PRESENT: RRR, +S1, +S2 Pulses: PRESENT: normal dorsalis pedis pul, +2 pedal pulses bilateral Vascular exam: PRESENT: normal capillary refill GI/Abdominal exam: PRESENT: normal bowel sounds, soft Rectal exam: PRESENT: deferred Neurological exam: PRESENT: alert, awake, oriented to person, oriented to place , oriented to time, oriented to situation, CN II-XII grossly intact Psychiatric exam: PRESENT: appropriate affect, normal mood Skin exam: PRESENT: dry, intact, warm Results Laboratory Results: 02/12/18 12:18 02/12/18 12:18 Qualifiers - * PATIENT BEING DISCHARGED WITH ANY OF THE FOLLOWING DIAGNOSIS: No VTE patient discharged on overlapping Therapy?: Yes
[2018-02-13] MEDS: INSULIN GLARGINE,HUM.REC.ANLOG 1,000 UNIT/10 ML UNIT SUBCUT SCH (22:10)
[2018-02-14 01:52] VITALS: BP 107/74
[2018-02-14] MEDS: MORPHINE SULFATE 10 MG/ML INJ IV PRN (03:56)
[2018-02-14] MEDS: PROMETHAZINE HCL INJ 25 MG/1 ML VIAL IV PRN (05:52)
[2018-02-14] MEDS: LORAZEPAM 1 MG TABLET PO SCH (05:53)
[2018-02-14] MEDS: TRAMADOL HCL 50 MG TABLET PO SCH (05:53)
[2018-02-17] MEDS ORDERED: (PENDING PHARMACY ID) (Dulaglutide [Trulicity] 0.75 MG) SQ SCH (10:00)
[2018-02-18] MEDS ORDERED: ERGOCALCIFEROL (VITAMIN D2) 50000 UNIT (1.25 MG) CAPSULE PO SCH (10:00)
== END 2018-02-14 05:50 | disposition home or self-care (01) ==
LOC: 4N 10:28
PROVIDERS: ADMIT Internal Medicine; ATTEND Internal Medicine
DX: R51 Headache (principal); R11.2 Nausea with vomiting, unspecified; E11.9 Type 2 diabetes mellitus without complications; I10 Essential (primary) hypertension; I25.2 Old myocardial infarction; M79.7 Fibromyalgia; Z79.84 Long term (current) use of oral hypoglycemic drugs
CPT/HCPCS: 36415 ×2; 82962 ×2; 85027; 80076; 80048; 81001; 83036; G0378 ×2; G0379; A9270 ×11; J2270 ×3; J2550 ×3; J1815; J3490; S0119